=== PATIENT | female | born 1950 | race Caucasian/White ===

== ENCOUNTER 2016-10-21 08:00 | Outpatient (CLI) | payer MEDICARE, MEDICAID | END 2016-10-21 08:01 | disposition home or self-care (01) | DX: I10 Essential (primary) hypertension (principal); D35.2 Benign neoplasm of pituitary gland; E24.9 Cushing's syndrome, unspecified; G62.9 Polyneuropathy, unspecified; E03.9 Hypothyroidism, unspecified; G89.29 Other chronic pain; R25.1 Tremor, unspecified ==

== ENCOUNTER 2016-11-19 10:30 | Outpatient (CLI) | payer MEDICARE, MEDICAID | END 2016-11-19 10:31 | disposition home or self-care (01) | DX: E87.6 Hypokalemia (principal); G60.9 Hereditary and idiopathic neuropathy, unspecified ==

== ENCOUNTER 2016-12-24 12:31 | Outpatient (CLI) | payer MEDICARE, MEDICAID | END 2016-12-24 12:32 | disposition home or self-care (01) | DX: G43.909 Migraine, unspecified, not intractable, without status migrainosus (principal) ==

== ENCOUNTER 2017-01-06 12:36 | Outpatient (CLI) | payer MEDICARE, MEDICAID ==
[2017-01-06 21:26] LABS: HEMOGLOBIN A1C 0.24 g/dL
== END 2017-01-06 12:37 | disposition home or self-care (01) ==
LOC: LAB.F 12:36
PROVIDERS: ATTEND Nurse Practitioner Family
DX: E16.2 Hypoglycemia, unspecified (principal); E03.9 Hypothyroidism, unspecified
CPT/HCPCS: 36415; 83036; 84443

== ENCOUNTER 2017-01-21 21:26 | Outpatient (CLI) | payer MEDICARE, MEDICAID | END 2017-01-21 21:27 | disposition EMS.NT | LOC: EMS 21:26 | PROVIDERS: ATTEND Surgery | DX: R41.0 Disorientation, unspecified (principal) ==

== ENCOUNTER 2017-01-21 23:02 | Emergency (ER) | payer MEDICARE, MEDICAID ==
[2017-01-21] MEDS ORDERED: SODIUM CHLORIDE 0.9% 1,000 ML IV ONE (23:39)
[2017-01-22 00:04] LABS: BASOPHILS % (AUTO) 0.6 %; EOSINOPHILS % (AUTO) 1.2 %; HCT - HEMATOCRIT 37.4 % (37.0-47.0); HGB - HEMOGLOBIN 12.5 g/dL (12.0-16.0); LYMPHOCYTES # (AUTO) 1.7 10^3/uL (1.5-3.5); LYMPHOCYTES % (AUTO) 41.4 %; MEAN CORPUSCULAR HEMOGLOBIN 27.9 pg (27.0-31.0); MEAN CORPUSCULAR HGB CONC 33.4 g/dL (32.0-36.0); MEAN CORPUSCULAR VOLUME 83.6 fL (81.0-99.0); MEAN PLATELET VOLUME 7.6 fL (7.9-10.8); MONOCYTES # (AUTO) 0.3 10^3/uL (0.0-1.0); MONOCYTES % (AUTO) 7.3 %; NEUTROPHILS % (AUTO) 49.5 %; RED BLOOD COUNT 4.47 10^6/uL (4.20-5.40); UNCORRECTED WHITE BLOOD COUNT 4.1 x10^3/uL; WHITE BLOOD COUNT 4.1 x10^3/uL (4.8-10.8)
[2017-01-22 00:16] LABS: BILIRUBIN,TOTAL 0.8 mg/dL (0.2-1.0); CREATININE 0.4 mg/dL (0.4-1.0); MAGNESIUM 1.7 mg/dL (1.7-2.8); PHOSPHORUS 3.3 mg/dL (2.5-4.6); POTASSIUM 3.9 mmol/L (3.5-5.0); TOTAL PROTEIN 6.9 g/dL (6.7-8.2)
--- NOTE | 2017-01-22 00:22 | ED Physician Documentation ---
History of Present Illness - Stated complaint Stated Complaint: NOT EATING/DRINKING - Chief complaint Chief Complaint: Abd Pain - History obtained from History obtained from: Patient, Family - History of Present Illness Timing: Yesterday - Additonal information Additional information: Patient is a 66 year old female with multiple co-morbidities who is coming to the emergency department for not feeling well. According to patient and care- taker patient hasn't felt well and hasn't eaten or drank anything since yesterday so they brought the patient in for evaluation. Review of Systems Constitutional: reports: Chills, Myalgias. denies: Fever Eyes: denies: Loss of vision, Photophobia Ears: denies: Ear pain, Drainage/discharge Nose: denies: Congestion, Epistaxis Throat: denies: Dental pain / toothache, Sore throat Cardiac: denies: Chest pain / pressure, Palpitations Respiratory: denies: Cough, Wheezing GI: reports: Abdominal Pain. denies: Nausea, Vomiting : denies: Dysuria, Frequency, Hesitancy Skin: denies: Rash, Lesions Musculoskeletal: reports: Neck pain, Back pain, Extremity pain, Joint pain Neurologic: reports: Generalized weakness. denies: Focal weakness, Numbness, Difficulty speaking, Headache Psychiatric: denies: Depressed Immunocompromised: denies: Immunocompromised PD PAST MEDICAL HISTORY - Past Medical History Past Medical History: No Cardiovascular: Hypertension GI: GERD Psych: Depression Musculoskeletal: Fibromyalgia Other Past Medical History: foot drop, chronic px - Past Surgical History Past Surgical History: Yes General: Appendectomy, Gastric surgery Ortho: ACL reconstruction - Present Medications Home Medications: Ambulatory Orders Medication Instructions Recorded Confirmed Aspirin [Aspirin EC] 81 mg PO DAILY 01/21/17 01/21/17 Duloxetine HCl 60 mg PO DAILY 01/21/17 01/21/17 Fluoxetine HCl 20 mg PO DAILY 01/21/17 01/21/17 Hydrocodone/Acetaminophen 1 tab PO Q4HR 01/21/17 01/21/17 [Hydrocodon-Acetaminophn 10-325] Hydroxyzine HCl 50 mg PO QID 01/21/17 01/21/17 Levothyroxine [Synthroid] 25 mcg PO DAILY 01/21/17 01/21/17 Lisinopril 10 mg PO BID 01/21/17 01/21/17 Methadone HCl [Dolophine HCl] 5 mg PO BID 01/21/17 01/21/17 Omeprazole [PriLOSEC] 20 mg PO DAILY 01/21/17 01/21/17 Pregabalin [Lyrica] 200 mg PO BID 01/21/17 01/21/17 amLODIPine [Norvasc] 5 mg PO BID 01/21/17 01/21/17 - Allergies Allergies/Adverse Reactions: Allergies Allergy/AdvReac Type Severity Reaction Status Date / Time latex Allergy Rash Verified 01/21/17 23:11 Penicillins Allergy Rash Verified 01/21/17 23:11 - Social History Does the pt smoke?: No Smoking Status: Never smoker Does the pt drink ETOH?: No Does the pt have substance abuse?: No - Immunizations Immunizations are current?: Yes PD ED PE NORMAL - Vitals Vital signs reviewed: Yes (within normal limits) - General General: Alert and oriented X 3, No acute distress - HEENT HEENT: Atraumatic, PERRL, Moist mucous membranes, Pharynx benign - Neck Neck: Supple, no meningeal sign, No JVD - Cardiac Cardiac: RRR, No murmur - Respiratory Respiratory: No respiratory distress - Abdomen Abdomen: Soft, Non distended - Derm Derm: Normal color, Warm and dry, No rash - Extremities Extremities: No deformity - Neuro Neuro: Alert and oriented X 3, No sensory deficit, Normal speech PD ED PE EXPANDED - General General: No acute distress, Other (generalized pain all over body) - Extremities Extremities: Left foot (drop) Results - Vitals Vitals: Vital Signs - 24 hr 01/21/17 01/22/17 23:07 00:32 Temperature 36.2 C L Heart Rate 90 72 Respiratory 18 16 Rate Blood Pressure 128/91 H 133/78 H O2 Saturation 100 99 Oxygen O2 Source Room air - Labs Labs: Laboratory Tests 01/21/17 01/21/17 23:55 23:55 WBC 4.1 L RBC 4.47 Hgb 12.5 Hct 37.4 MCV 83.6 MCH 27.9 MCHC 33.4 RDW 17.0 H Plt Count 217 MPV 7.6 L Neut # 2.0 Lymph # 1.7 [place] # 0.3 Eos # 0.0 Baso # 0.0 Absolute Nucleated RBC 0.00 Nucleated RBCs 0.0 Sodium 140 Potassium 3.9 Chloride 106 Carbon Dioxide 25 Anion Gap 9.0 BUN 9 Creatinine 0.4 Estimated GFR (MDRD) 161 Glucose 82 Calcium 9.0 Phosphorus 3.3 Magnesium 1.7 Total Bilirubin 0.8 AST 25 ALT 20 Alkaline Phosphatase 73 Total Protein 6.9 Albumin 3.4 Globulin 3.5 Albumin/Globulin Ratio 1.0 Lipase 11 L PD MEDICAL DECISION MAKING - ED course Complexity details: reviewed old records, reviewed results, re-evaluated patient , considered differential, d/w patient, d/w family ED course: Patient was seen and examined at bedside. IV access was gained and labs were drawn. Patient was treated with ns bolus. When patient's diagnostics came back they were within normal limits. Patient stated she was feeling better and wanted to go home. patient requried no further inpatient work up and was stable for discharge with outpatient follow up. Departure - Departure Disposition: Home, Self Care Clinical Impression: Loss of appetite Condition: Good Instructions: Chronic Pain Manage Meds Follow-Up: Rosalina Marc ARNP [Primary Care Provider] - Within 1 week Comments: Your diagnostics today were within normal limits. there were no major abnormalities on your labs today. You should try to at least take in sufficient fluids. If this problem persists you should follow up with your pmd for possibly an appetite stimulant and medication adjustment. You may return to the emergency department at any time for new, worsening or uncontrollable symptoms. Discharge Date/Time: 01/22/17 00:22
[2017-01-22 00:33] VITALS: BP 133/78
== END 2017-01-22 00:22 | disposition home or self-care (01) ==
LOC: ED 23:02
DX: R63.0 Anorexia (principal); I10 Essential (primary) hypertension
CPT/HCPCS: 36415; 80053; 83690; 83735; 84100; 85025; 99283; 99284

== ENCOUNTER 2017-02-03 17:17 | Outpatient (CLI) | payer MEDICARE, MEDICAID ==
--- NOTE | 2017-02-04 18:59 | Ultrasound Report ---
COMPLETE ABDOMINAL ULTRASOUND: 02/03/2017 CLINICAL HISTORY: A 66-year-old female with abdominal pain. COMPARISON: 12/30/2006 TECHNIQUE: Real-time scanning was performed with business services representative static images obtained. FINDINGS: Liver is normal in size with a parenchymal pattern suggestive of benign fatty infiltration . Liver length is 13.1 cm. Normal hepatopetal flow is seen in the portal vein. Gallbladder shows no significant wall thickening. There is a calculus noted within the gallbladder. This calculus is mobile. It measures 7 mm in diameter and is associated with shadowing. Common hepatic and common bile duct measures 5.5 mm and is within normal limits. Pancreas is incompletely visualized. No obvious abnormality is seen in the portion of the pancreas v isualized. Right kidney measures 9.6 cm. The inferior pole of the right kidney is not seen optimally. Cannot e xclude at least some mild scarring in the inferior pole. Left kidney measures 8.4 cm and has an irregular contour suggesting scarring along its lateral aspect . Spleen is normal with a length of 9.8 cm. Abdominal aorta appears normal. There is some calcified plaque. AP diameter in the mid abdominal ao rta is 1.8 cm. Diameters of the distal abdominal aorta are 1.5 x 1.4 cm. Inferior vena cava shows n o significant abnormality. IMPRESSION: 1. CHOLELITHIASIS. A 7-MM CALCULUS IS NOTED IN THE GALLBLADDER. 2. BENIGN FATTY INFILTRATION OF THE LIVER IS NOTED. 3. [id number] SCARRING IS NOTED INVOLVING THE LEFT KIDNEY WITH MILD REDUCTION IN SIZE. RENAL LENGTH IS 8.4 CM. 4. CANNOT EXCLUDE SCARRING INVOLVING THE INFERIOR POLE OF THE RIGHT KIDNEY. RIGHT KIDNEY'S LENGTH I S 9.6 CM. JOB #: [id number] EXT JOB #:[id number]
== END 2017-02-03 17:18 | disposition home or self-care (01) ==
LOC: DI 17:17
PROVIDERS: ATTEND Family Medicine
DX: K80.20 Calculus of gallbladder without cholecystitis without obstruction (principal); K76.0 Fatty (change of) liver, not elsewhere classified
CPT/HCPCS: 76700

== ENCOUNTER 2017-02-10 10:44 | Outpatient (CLI) | payer MEDICARE, MEDICAID | END 2017-02-10 10:45 | disposition home or self-care (01) | LOC: LAB.F 10:44 | PROVIDERS: ATTEND Family Medicine | DX: E03.9 Hypothyroidism, unspecified (principal) | CPT/HCPCS: 36415; 84443 ==

== ENCOUNTER 2017-03-12 11:45 | Outpatient (CLI) | payer MEDICARE, MEDICAID ==
[2017-03-12 18:36] LABS: BASOPHILS % (AUTO) 0.4 %; EOSINOPHILS # (AUTO) 0.1 10^3/uL (0.0-0.7); EOSINOPHILS % (AUTO) 2.5 %; HGB - HEMOGLOBIN 12.4 g/dL (12.0-16.0); LYMPHOCYTES # (AUTO) 2.1 10^3/uL (1.5-3.5); LYMPHOCYTES % (AUTO) 41.8 %; MEAN CORPUSCULAR HEMOGLOBIN 29.5 pg (27.0-31.0); MEAN CORPUSCULAR HGB CONC 32.5 g/dL (32.0-36.0); MEAN CORPUSCULAR VOLUME 90.9 fL (81.0-99.0); MEAN PLATELET VOLUME 8.4 fL (7.9-10.8); MONOCYTES # (AUTO) 0.2 10^3/uL (0.0-1.0); MONOCYTES % (AUTO) 4.4 %; NEUTROPHILS # (AUTO) 2.5 10^3/uL (1.5-6.6); NEUTROPHILS % (AUTO) 50.9 %; NUCLEATED RED BLOOD CELLS AUTO 0.1 /100WBC; RED BLOOD COUNT 4.18 10^6/uL (4.20-5.40); RED CELL DISTRIBUTION WIDTH 17.3 % (12.0-15.0)
[2017-03-12 19:00] LABS: ALBUMIN/GLOBULIN RATIO 1.1 (1.0-2.2); BILIRUBIN,TOTAL 0.4 mg/dL (0.2-1.0); CALCIUM 8.1 mg/dL (8.5-10.3); CREATININE 0.5 mg/dL (0.4-1.0); MAGNESIUM 1.7 mg/dL (1.7-2.8); POTASSIUM 4.5 mmol/L (3.5-5.0); TOTAL PROTEIN 5.9 g/dL (6.7-8.2)
== END 2017-03-12 11:46 | disposition home or self-care (01) ==
LOC: LAB.F 11:45
PROVIDERS: ATTEND Nurse Practitioner Family
DX: R63.4 Abnormal weight loss (principal)
CPT/HCPCS: 36415; 80053; 83735; 85025

== ENCOUNTER 2017-03-19 20:53 | Emergency (ER) | payer MEDICARE, MEDICAID ==
[2017-03-19] MEDS ORDERED: SODIUM CHLORIDE 0.9% 1,000 ML IV ONE (21:56)
[2017-03-19 22:42] LABS: BASOPHILS % (AUTO) 0.2 %; EOSINOPHILS % (AUTO) 0.5 %; HCT - HEMATOCRIT 37.6 % (37.0-47.0); HGB - HEMOGLOBIN 12.4 g/dL (12.0-16.0); LYMPHOCYTES # (AUTO) 1.3 10^3/uL (1.5-3.5); LYMPHOCYTES % (AUTO) 15.4 %; MEAN CORPUSCULAR HEMOGLOBIN 29.7 pg (27.0-31.0); MEAN CORPUSCULAR VOLUME 89.9 fL (81.0-99.0); MEAN PLATELET VOLUME 7.9 fL (7.9-10.8); MONOCYTES # (AUTO) 0.6 10^3/uL (0.0-1.0); NEUTROPHILS # (AUTO) 6.5 10^3/uL (1.5-6.6); NEUTROPHILS % (AUTO) 76.9 %; NUCLEATED RED BLOOD CELLS AUTO 0.1 /100WBC; RED BLOOD COUNT 4.18 10^6/uL (4.20-5.40); RED CELL DISTRIBUTION WIDTH 17.1 % (12.0-15.0); UNCORRECTED WHITE BLOOD COUNT 8.5 x10^3/uL; WHITE BLOOD COUNT 8.5 x10^3/uL (4.8-10.8)
[2017-03-19 22:55] LABS: ALBUMIN/GLOBULIN RATIO 1.1 (1.0-2.2); BILIRUBIN,TOTAL 0.4 mg/dL (0.2-1.0); CREATININE 0.7 mg/dL (0.4-1.0); MAGNESIUM 1.3 mg/dL (1.7-2.8); PHOSPHORUS 2.4 mg/dL (2.5-4.6); TOTAL PROTEIN 5.6 g/dL (6.7-8.2)
[2017-03-19] MEDS ORDERED: POTASSIUM CHLORIDE 20 MEQ TABLET PO STA (23:44)
[2017-03-19] MEDS ORDERED: MAGNESIUM OXIDE 400 MG TABLET PO SCH (23:45)
[2017-03-19] MEDS ORDERED: POTASSIUM CHLORIDE 20 MEQ TABLET PO ONE (23:55)
[2017-03-19] MEDS ORDERED: MAGNESIUM OXIDE 400 MG TABLET PO ONE (23:55)
--- NOTE | 2017-03-20 00:24 | ED Physician Documentation ---
PD HPI NVD - Stated complaint Stated Complaint: NOT EATING - Chief complaint Chief Complaint: Abd Pain - History obtained from History obtained from: Patient, Family - History of Present Illness Timing - onset: How many days ago (2) Timing - details: Gradual onset, Still present Associated symptoms: Abdominal pain. No: Fever, Chest pain, Melena, Dizzy Contributing factors: No: Sick contact, Bad food, Travel, Recent antibiotics, Alcohol use Similar symptoms before: Treatment, Follow up Recently seen: Not recently seen - Additonal information Additional information: Patient is a 66 year old female with multiple co-morbidities who is presenting to the emergency department for diarrhea and abdominal cramping. according to patient and family, the patient has had multiple episodes of diarrhea over the last few days. patient denies any fevers, chills or vomiting. Review of Systems Constitutional: denies: Fever, Chills Ears: denies: Ear pain, Drainage/discharge Nose: denies: Congestion, Epistaxis Throat: denies: Sore throat Cardiac: denies: Chest pain / pressure, Palpitations Respiratory: denies: Cough, Wheezing GI: reports: Abdominal Pain, Diarrhea. denies: Abdominal Swelling, Nausea, Vomiting, Constipation : denies: Dysuria, Frequency, Hesitancy Skin: denies: Rash, Lesions Musculoskeletal: denies: Back pain, Extremity pain Neurologic: denies: Generalized weakness, Focal weakness, Numbness Immunocompromised: reports: Immunocompromised PD PAST MEDICAL HISTORY - Past Medical History Cardiovascular: Hypertension GI: GERD Psych: Depression Musculoskeletal: Fibromyalgia - Past Surgical History Past Surgical History: Yes General: Appendectomy, Gastric surgery Ortho: ACL reconstruction - Present Medications Home Medications: Ambulatory Orders Medication Instructions Recorded Confirmed Aspirin [Aspirin EC] 81 mg PO DAILY 01/21/17 01/21/17 Duloxetine HCl 60 mg PO DAILY 01/21/17 01/21/17 Fluoxetine HCl 20 mg PO DAILY 01/21/17 01/21/17 Hydrocodone/Acetaminophen 1 tab PO Q4HR 01/21/17 01/21/17 [Hydrocodon-Acetaminophn 10-325] Hydroxyzine HCl 50 mg PO QID 01/21/17 01/21/17 Levothyroxine [Synthroid] 25 mcg PO DAILY 01/21/17 01/21/17 Lisinopril 10 mg PO BID 01/21/17 01/21/17 Methadone HCl [Dolophine HCl] 5 mg PO BID 01/21/17 01/21/17 Omeprazole [PriLOSEC] 20 mg PO DAILY 01/21/17 01/21/17 Pregabalin [Lyrica] 200 mg PO BID 01/21/17 01/21/17 amLODIPine [Norvasc] 5 mg PO BID 01/21/17 01/21/17 Dicyclomine [Bentyl] 10 mg PO TID #15 capsule 03/20/17 - Allergies Allergies/Adverse Reactions: Allergies Allergy/AdvReac Type Severity Reaction Status Date / Time latex Allergy Rash Verified 03/19/17 21:01 Penicillins Allergy Rash Verified 03/19/17 21:01 - Social History Does the pt smoke?: No Smoking Status: Never smoker Does the pt drink ETOH?: No Does the pt have substance abuse?: No - Immunizations Immunizations are current?: Yes - POLST Patient has POLST: No PD ED PE NORMAL - Vitals Vital signs reviewed: Yes - General General: Alert and oriented X 3 - HEENT HEENT: Atraumatic, PERRL - Neck Neck: Supple, no meningeal sign - Cardiac Cardiac: RRR, No murmur - Respiratory Respiratory: No respiratory distress - Abdomen Abdomen: Soft - Derm Derm: Normal color, Warm and dry - Extremities Extremities: No edema, No calf tenderness / cord - Neuro Neuro: marketing and public relations manager 2-12 intact, Normal speech - Psych Psych: Normal mood PD ED PE EXPANDED - General General: Alert - HEENT HEENT: Dry mucous membranes - Abdomen Abdomen: Tender to palpation, Generalized/diffuse. No: Rebound, Guarding Results - Vitals Vitals: Vital Signs - 24 hr 03/19/17 03/19/17 03/20/17 20:58 23:29 00:33 Temperature 36.3 C L 36.0 C L 36.0 C L Heart Rate 78 89 72 Respiratory 16 16 15 Rate Blood Pressure 111/79 93/49 L 109/75 O2 Saturation 100 98 97 Oxygen O2 Source Room air - Labs Labs: Microbiology 03/19/17 22:45 Campylobacter Antigen Assay - Final Stool 03/19/17 22:45 Clostridium difficile (PCR) - Final Stool Laboratory Tests 03/19/17 03/19/17 22:30 22:30 WBC 8.5 RBC 4.18 L Hgb 12.4 Hct 37.6 MCV 89.9 MCH 29.7 MCHC 33.0 RDW 17.1 H Plt Count 180 MPV 7.9 Neut # 6.5 Lymph # 1.3 L [place] # 0.6 Eos # 0.0 Baso # 0.0 Absolute Nucleated RBC 0.01 Nucleated RBCs 0.1 Sodium 140 Potassium 3.0 L Chloride 112 H Carbon Dioxide 19 L Anion Gap 9.0 BUN 16 Creatinine 0.7 Estimated GFR (MDRD) 84 L Glucose 83 Calcium 8.0 L Phosphorus 2.4 L Magnesium 1.3 L Total Bilirubin 0.4 AST 24 ALT 31 Alkaline Phosphatase 73 Total Protein 5.6 L Albumin 2.9 L Globulin 2.7 Albumin/Globulin Ratio 1.1 Lipase 10 L PD MEDICAL DECISION MAKING - ED course Complexity details: reviewed old records, reviewed results, re-evaluated patient , considered differential, d/w patient, d/w family ED course: Patient was seen and examined at bedside. iv access was gained and labs were drawn. Patient was started on a fluid bolus. stool was collected. When patient's labs came back she was found to have low potassium and magnesium which were replaced. Patient's stool was negative for c-diff. Patient did not have diarrhea while in the emergency department. patient required no further work up and was stable for discharge with outpatient follow up. Departure - Departure Disposition: 01 Home, Self Care Clinical Impression: Diarrhea Condition: Good Instructions: Diarrhea Follow-Up: Rosalina Marc ARNP [Primary Care Provider] - Within 1 week Prescriptions: Dicyclomine [Bentyl] 10 mg PO TID #15 capsule Comments: Your diagnostics today showed mild dehydration and a decrease in your electrolytes which is consistent with a diarrheal illness. It is important that you stay well hydrated with gatorade and electrolyte solution. You should follow up with your pmd if your symptoms persist. You may return to the emergency department at any time for new, worsening or uncontrollable symptoms. Discharge Date/Time: 03/20/17 00:40
[2017-03-20 00:34] VITALS: BP 109/75
== END 2017-03-20 00:40 | disposition home or self-care (01) ==
LOC: ED 20:53
DX: R19.7 Diarrhea, unspecified (principal); E86.0 Dehydration; I10 Essential (primary) hypertension; M79.7 Fibromyalgia; Z79.82 Long term (current) use of aspirin
CPT/HCPCS: 36415; 80053; 83690; 83735; 84100; 85025; 87045; 87046; 87077; 87493; 99283; A9270

== ENCOUNTER 2017-12-02 11:25 | Outpatient (CLI) | payer MEDICARE, MEDICAID | END 2017-12-02 11:26 | disposition home or self-care (01) | LOC: RT.S 11:25 | PROVIDERS: ATTEND Nurse Practitioner Family | DX: G62.9 Polyneuropathy, unspecified (principal) | CPT/HCPCS: 93005 ==

== ENCOUNTER 2017-12-17 11:32 | Outpatient (CLI) | payer MEDICARE, MEDICAID ==
--- NOTE | 2017-12-17 14:03 | Ultrasound Report ---
COMPLETE ABDOMINAL ULTRASOUND: 12/17/2017 CLINICAL INDICATION: Pain. COMPARISON: 02/03/2017. TECHNIQUE: Real-time scanning was performed with cash applications representative static images obtained. FINDINGS: The liver measures 12.2 cm. Hepatic echogenicity is normal. No intrahepatic biliary dilatation or focal parenchymal lesion is present. The common bile duct measures 2 mm. The gallbladder again demonstrates cholelithiasis. No wall thickening or pericholecystic fluid is present. The pancreas is obscured by bowel gas. The right kidney measures 9.0 cm. Calculus in the lower pole of the right kidney is stable, without hydronephrosis. Small cysts are again noted. The left kidney measures 10.9 cm, and demonstrates no hydronephrosis. The spleen measures 11.2 cm, and demonstrates normal echotexture. The abdominal aorta is normal in caliber. The inferior vena cava is unremarkable. Bilateral pleural effusions are incidentally noted. IMPRESSION: CHOLELITHIASIS, WITHOUT EVIDENCE OF ACUTE CHOLECYSTITIS OR BILIARY OBSTRUCTION. RIGHT NEPHROLITHIASIS, WITHOUT HYDRONEPHROSIS. BILATERAL PLEURAL EFFUSIONS. TD: 12/17/2017 14:03
== END 2017-12-17 11:33 | disposition home or self-care (01) ==
LOC: DI 11:32
PROVIDERS: ATTEND Nurse Practitioner Family
DX: K80.20 Calculus of gallbladder without cholecystitis without obstruction (principal); N20.0 Calculus of kidney; J90 Pleural effusion, not elsewhere classified; K91.2 Postsurgical malabsorption, not elsewhere classified; R63.4 Abnormal weight loss
CPT/HCPCS: 36415; 76700; 80053; 82043; 82150; 82306; 83690; 84439; 84443; 85025

== ENCOUNTER 2017-12-17 13:35 | Outpatient (CLI) | payer MEDICARE, MEDICAID ==
[2017-12-17 14:13] LABS: BASOPHILS % (AUTO) 0.5 %; EOSINOPHILS # (AUTO) 0.1 10^3/uL (0.0-0.7); EOSINOPHILS % (AUTO) 2.7 %; HGB - HEMOGLOBIN 11.1 g/dL (12.0-16.0); LYMPHOCYTES # (AUTO) 1.8 10^3/uL (1.5-3.5); LYMPHOCYTES % (AUTO) 41.2 %; MEAN CORPUSCULAR HEMOGLOBIN 28.3 pg (27.0-31.0); MEAN CORPUSCULAR HGB CONC 33.5 g/dL (32.0-36.0); MEAN CORPUSCULAR VOLUME 84.7 fL (81.0-99.0); MONOCYTES # (AUTO) 0.2 10^3/uL (0.0-1.0); MONOCYTES % (AUTO) 5.4 %; NEUTROPHILS # (AUTO) 2.2 10^3/uL (1.5-6.6); NEUTROPHILS % (AUTO) 50.2 %; PLT - PLATELET COUNT 178 10^3/uL (130-450); RED BLOOD COUNT 3.92 10^6/uL (4.20-5.40); RED CELL DISTRIBUTION WIDTH 14.9 % (12.0-15.0); WHITE BLOOD COUNT 4.3 x10^3/uL (4.8-10.8)
[2017-12-17 14:17] LABS: ALBUMIN 3.1 g/dL (3.2-5.5); ALBUMIN/GLOBULIN RATIO 1.2 (1.0-2.2); ALKALINE PHOSPHATASE 59 IU/L (42-121); ALT ALANINE AMINOTRANSFERASE 14 IU/L (10-60); AMYLASE 11 U/L (28-100); AST ASPARTATE AMINOTRANSFERASE 27 IU/L (10-42); BILIRUBIN,TOTAL 0.4 mg/dL (0.2-1.0); BUN - BLOOD UREA NITROGEN 13 mg/dL (6-20); CALCIUM 7.7 mg/dL (8.5-10.3); CARBON DIOXIDE - CO2 24 mmol/L (21-32); CHLORIDE 107 mmol/L (101-111); CREATININE 0.4 mg/dL (0.4-1.0); GFR - MDRD 160 (>89); GLUCOSE 66 mg/dL (70-100); LIPASE 15 U/L (22-51); SODIUM 137 mmol/L (135-145); TOTAL PROTEIN 5.7 g/dL (6.7-8.2)
[2017-12-17 14:32] LABS: THYROID STIMULATING HORMONE 8.37 uIU/mL (0.34-5.60)
[2017-12-17 15:08] LABS: FREE T4 (FREE THYROXINE) 0.45 ng/dL (0.58-1.64)
== END 2017-12-17 13:36 | disposition home or self-care (01) ==
LOC: LAB 13:35
PROVIDERS: ATTEND Nurse Practitioner Family
DX: K91.2 Postsurgical malabsorption, not elsewhere classified (principal); R63.4 Abnormal weight loss
CPT/HCPCS: 36415; 80053; 82043; 82150; 82306; 83690; 84439; 84443; 85025

== ENCOUNTER 2018-02-05 01:58 | Outpatient (CLI) | payer MEDICARE, MEDICAID | END 2018-02-05 01:59 | disposition critical access hospital (66) | LOC: EMS 01:58 | PROVIDERS: ATTEND Surgery | DX: R10.32 Left lower quadrant pain (principal) | CPT/HCPCS: A0425; A0427 ==

== ENCOUNTER 2018-02-05 02:34 | Emergency (ER) | payer MEDICARE, MEDICAID ==
--- NOTE | 2018-02-05 02:46 | ED Physician Documentation ---
PD HPI ABD PAIN - Stated complaint Stated Complaint: LLQ PAIN - Chief complaint Chief Complaint: Abd Pain - History obtained from History obtained from: Patient, Family (sister (who is also primary caregiver of patient)) - History of Present Illness Timing - onset: Other (patient says months; sister indicates these symptoms have been for at least ten years) Timing - details: Constant, Waxing and waning Pain level max: 10 Pain level now: 10 Quality: Pain Location: LLQ Radiation: Other (left hip) Improved by: Other (no ameliorating factors) Worsened by: Other (no exacerbating factors) Associated symptoms: No: Fever, Vomiting Recently seen: Not recently seen - Additional information Additional information: BIBA c/o uncontrolled left abdominal and left hip pain, given 250 micrograms fentanyl en route without adequate relief. Patient takes methadone, vicodin, and uses marijuana for her chronic pain. patient is bed-ridden; no recent falls or injury Review of Systems Constitutional: denies: Fever Cardiac: reports: Reviewed and negative Respiratory: reports: Reviewed and negative GI: reports: Abdominal Pain. denies: Vomiting, Constipation, Diarrhea : denies: Dysuria, Frequency Skin: denies: Rash Musculoskeletal: reports: Joint pain (left hip) Neurologic: denies: Focal weakness, Numbness PD PAST MEDICAL HISTORY - Past Medical History Cardiovascular: Hypertension GI: GERD Psych: Depression Musculoskeletal: Fibromyalgia - Past Surgical History Past Surgical History: Yes General: Appendectomy, Gastric surgery Ortho: ACL reconstruction - Present Medications Home Medications: Ambulatory Orders Medication Instructions Recorded Confirmed Aspirin [Aspirin EC] 81 mg PO DAILY 01/21/17 01/21/17 Duloxetine HCl 60 mg PO DAILY 01/21/17 01/21/17 Fluoxetine HCl 20 mg PO DAILY 01/21/17 01/21/17 Hydrocodone/Acetaminophen 1 tab PO Q4HR 01/21/17 01/21/17 [Hydrocodon-Acetaminophn 10-325] Levothyroxine [Synthroid] 25 mcg PO DAILY 01/21/17 01/21/17 Lisinopril 10 mg PO BID 01/21/17 01/21/17 Methadone HCl [Dolophine HCl] 5 mg PO BID 01/21/17 01/21/17 Omeprazole [PriLOSEC] 20 mg PO DAILY 01/21/17 01/21/17 Pregabalin [Lyrica] 200 mg PO BID 01/21/17 01/21/17 amLODIPine [Norvasc] 5 mg PO BID 01/21/17 01/21/17 hydrOXYzine HCl [Hydroxyzine HCl] 50 mg PO QID 01/21/17 01/21/17 Dicyclomine [Bentyl] 10 mg PO TID #15 capsule 03/20/17 LORazepam [Lorazepam] 0.5 - 1 mg PO Q8HR PRN #20 tablet 02/05/18 Methadone [Methadone] 5 mg PO BID 02/05/18 - Allergies Allergies/Adverse Reactions: Allergies Allergy/AdvReac Type Severity Reaction Status Date / Time latex Allergy Rash Verified 02/05/18 02:43 Penicillins Allergy Rash Verified 02/05/18 02:43 - Social History Does the pt smoke?: No Smoking Status: Never smoker Does the pt drink ETOH?: No Does the pt have substance abuse?: No - Immunizations Immunizations are current?: Yes - POLST Patient has POLST: No PD ED PE NORMAL - Vitals Vital signs reviewed: Yes - General General: Alert and oriented X 3, Well developed/nourished, Other (crying, appears to be in painful distress that waxes and wanes during H+P) - HEENT HEENT: Moist mucous membranes - Cardiac Cardiac: RRR, No murmur - Respiratory Respiratory: No respiratory distress, Other (decreased breath sounds bilateral bases) - Abdomen Abdomen: Soft, Non distended, Other (tender to palpation bilateral lower quadrants with distractable component (reports more pain, and appears to be in more painful discomfort, when palpation is not accompanied by distraction such as conversation unrelated to her symptoms). no rebound or guarding.) - Back Back: No CVA TTP, No spinal TTP - Derm Derm: Normal color, Warm and dry, No rash - Extremities Extremities: No deformity, No tenderness to palpate, No edema, Other (left hip: nontender, no erythema, not hot to touch, no obvious swelling or deformity. limited ROM , although it is unclear if this is due to pain) Results - Vitals Vitals: Vital Signs - 24 hr 02/05/18 02/05/18 02/05/18 02:34 03:00 03:05 Temperature 36.3 C L Heart Rate 80 70 Respiratory 20 16 Rate Blood Pressure 101/64 84/66 L 86/60 L O2 Saturation 97 99 02/05/18 02/05/18 02/05/18 03:13 03:21 03:36 Temperature Heart Rate 66 78 Respiratory 22 Rate Blood Pressure 84/58 L 96/61 97/65 O2 Saturation 98 98 02/05/18 02/05/18 02/05/18 03:50 04:34 05:08 Temperature Heart Rate 61 64 58 L Respiratory 18 14 16 Rate Blood Pressure 110/65 105/52 L 102/92 H O2 Saturation 99 98 97 02/05/18 02/05/18 02/05/18 05:40 06:09 06:52 Temperature 36.7 C Heart Rate 57 L 58 L 66 Respiratory 16 18 18 Rate Blood Pressure 93/51 L 108/61 106/62 O2 Saturation 98 99 98 Oxygen O2 Source Room air - Labs Labs: Laboratory Tests 02/05/18 02/05/18 03:00 03:00 WBC 4.4 L RBC 3.83 L Hgb 11.0 L Hct 32.9 L MCV 86.0 MCH 28.6 MCHC 33.3 RDW 14.5 Plt Count 202 MPV 7.9 Neut # (Auto) 2.6 Lymph # (Auto) 1.3 L [place] # (Auto) 0.3 Eos # (Auto) 0.1 Baso # (Auto) 0.0 Absolute Nucleated RBC 0.00 Nucleated RBC % 0.0 Sodium 136 Potassium 3.8 Chloride 105 Carbon Dioxide 25 Anion Gap 6.0 BUN 13 Creatinine 0.5 Estimated GFR (MDRD) 124 Glucose 82 Calcium 7.8 L Total Bilirubin 0.2 AST 28 ALT 15 Alkaline Phosphatase 67 Total Protein 6.1 L Albumin 3.3 Globulin 2.8 Albumin/Globulin Ratio 1.2 Lipase 16 L - Rads (name of study) CT A/P Radiology: Prelim report reviewed, See rad report PD MEDICAL DECISION MAKING - ED course Complexity details: reviewed old records, reviewed results, re-evaluated patient , considered differential, d/w patient, d/w family ED course: no acute findings on testing, including CT A/P with IV/PO contrast, and no findings that would explain her pain. Symptoms were difficult to control, and she had some mild hypotension early in stay that responded to IV fluids, but this limited options for more frequent/higher dosing of narcotic pain medication. Once her blood pressure responded to the IV fluids, given 0.5 mg Dilaudid and 1mg ativan, and, on reevaluation, she was sleeping. she expressed ongoing pain, but appeared more comfortable, as well as drowsy, on the reexam. I discussed results with patient and sister (in ED at bedside). Discharged with rx for ativan to be used only if her usual pain medications are inadequate, and encouraged to follow-up with PMD but return to ED if worse - Sepsis Event Vital Signs: Vital Signs - 24 hr 02/05/18 02/05/18 02/05/18 02:34 03:00 03:05 Temperature 36.3 C L Heart Rate 80 70 Respiratory 20 16 Rate Blood Pressure 101/64 84/66 L 86/60 L O2 Saturation 97 99 02/05/18 02/05/18 02/05/18 03:13 03:21 03:36 Temperature Heart Rate 66 78 Respiratory 22 Rate Blood Pressure 84/58 L 96/61 97/65 O2 Saturation 98 98 02/05/18 02/05/18 02/05/18 03:50 04:34 05:08 Temperature Heart Rate 61 64 58 L Respiratory 18 14 16 Rate Blood Pressure 110/65 105/52 L 102/92 H O2 Saturation 99 98 97 02/05/18 02/05/18 02/05/18 05:40 06:09 06:52 Temperature 36.7 C Heart Rate 57 L 58 L 66 Respiratory 16 18 18 Rate Blood Pressure 93/51 L 108/61 106/62 O2 Saturation 98 99 98 Oxygen O2 Source Room air Departure - Departure Disposition: 01 Home, Self Care Clinical Impression: Chronic pain Condition: Good Instructions: ED Abdominal Pain Unkn Cause, ED Chronic Pain Management Follow-Up: Rosalina Marc ARNP [Primary Care Provider] - Prescriptions: LORazepam [Lorazepam] 0.5 - 1 mg PO Q8HR PRN #20 tablet PRN Reason: Pain Discharge Date/Time: 02/05/18 08:03
[2018-02-05 03:13] LABS: BASOPHILS % (AUTO) 0.6 %; EOSINOPHILS # (AUTO) 0.1 10^3/uL (0.0-0.7); EOSINOPHILS % (AUTO) 2.8 %; LYMPHOCYTES # (AUTO) 1.3 10^3/uL (1.5-3.5); LYMPHOCYTES % (AUTO) 29.9 %; MEAN CORPUSCULAR HEMOGLOBIN 28.6 pg (27.0-31.0); MEAN CORPUSCULAR HGB CONC 33.3 g/dL (32.0-36.0); MEAN PLATELET VOLUME 7.9 fL (7.9-10.8); MONOCYTES # (AUTO) 0.3 10^3/uL (0.0-1.0); MONOCYTES % (AUTO) 6.2 %; NEUTROPHILS # (AUTO) 2.6 10^3/uL (1.5-6.6); NEUTROPHILS % (AUTO) 60.5 %; PLT - PLATELET COUNT 202 10^3/uL (130-450); RED BLOOD COUNT 3.83 10^6/uL (4.20-5.40); RED CELL DISTRIBUTION WIDTH 14.5 % (12.0-15.0); WHITE BLOOD COUNT 4.4 x10^3/uL (4.8-10.8)
[2018-02-05] MEDS ORDERED: IOPAMIDOL-300 100 ML VIAL ONE (03:14)
[2018-02-05] MEDS ORDERED: IOPAMIDOL-300 50 ML VIAL ONE (03:15)
[2018-02-05] MEDS ORDERED: SODIUM CHLORIDE 0.9% 1,000 ML IV STA (03:18)
[2018-02-05 03:21] LABS: ALBUMIN 3.3 g/dL (3.2-5.5); ALBUMIN/GLOBULIN RATIO 1.2 (1.0-2.2); BILIRUBIN,TOTAL 0.2 mg/dL (0.2-1.0); CALCIUM 7.8 mg/dL (8.5-10.3); CREATININE 0.5 mg/dL (0.4-1.0); TOTAL PROTEIN 6.1 g/dL (6.7-8.2)
[2018-02-05] MEDS ORDERED: HYDROmorphone 2 MG/ML VIAL IVP STA (04:02)
[2018-02-05] MEDS ORDERED: LORazepam 2 MG/ML VIAL IVP STA (04:02)
[2018-02-05] MEDS ORDERED: IOPAMIDOL-300 50 ML VIAL PO ONE (04:33)
[2018-02-05] MEDS ORDERED: IOPAMIDOL-300 100 ML VIAL IVP ONE (04:33)
--- NOTE | 2018-02-05 05:04 | CT Report ---
Procedure Date: 02/05/2018 Accession Number: [id number] / [id number] Procedure: CT - Abdomen/Pelvis W/ CPT Code: FULL RESULT: EXAM: CT ABDOMEN AND PELVIS EXAM DATE: 02/05/2018 04:30 AM. CLINICAL HISTORY: Abd. pain. COMPARISONS: 09/04/2011. TECHNIQUE: Routine helical CT imaging was performed through the abdomen and pelvis. IV contrast: ISOVUE 300 100mL. Enteric contrast: Yes. Reconstructions: Coronal and sagittal. In accordance with CT protocol optimization, one or more of the following dose reduction techniques were utilized for this exam: automated exposure control, adjustment of mA and/or KV based on patient size, or use of iterative reconstructive technique. FINDINGS: Lung Bases: Moderate bilateral effusions with compressive atelectasis. Liver: Normal. No masses. Gallbladder/Bile Ducts: Unremarkable. Spleen: Normal. Pancreas: Atrophic. No focal lesion. Adrenal Glands: Normal. Kidneys: There has been interval development of significant left renal atrophy. Right nephrolithiasis is stable. Peritoneal Cavity/Bowel: Normal. No free fluid, free air or adenopathy. No masses or acute inflammatory process. Pelvic Organs: Sigmoid diverticulosis, without CT evidence of diverticulitis. No free fluid or pelvic adenopathy. Vasculature: No aneurysms or other significant abnormality. Bones: No significant abnormality. Other: None. IMPRESSION: Left renal atrophy and pancreatic atrophy. Stable right nephrolithiasis. Moderate pleural effusions with compressive atelectasis. No evident etiology for patient's pain. RADIA
[2018-02-05 06:53] VITALS: BP 106/62
[2018-02-05] MEDS ORDERED: HYDROcod/ACETAM 5/325 MG TABLET PO STA (06:59)
== END 2018-02-05 08:03 | disposition home or self-care (01) ==
LOC: EDUNIT# → ED 02:34
DX: G89.29 Other chronic pain (principal); I10 Essential (primary) hypertension; Z79.82 Long term (current) use of aspirin
CPT/HCPCS: 36415; 74177; 80053; 83690; 85025; 96361; 96374; 99284; A9270; J1170; J2060; Q9967

== ENCOUNTER 2018-02-05 07:56 | Outpatient (CLI) | payer MEDICARE, MEDICAID | END 2018-02-05 07:57 | disposition home or self-care (01) | LOC: EMS 07:56 | PROVIDERS: ATTEND Surgery | DX: G89.29 Other chronic pain (principal); Z74.01 Bed confinement status | CPT/HCPCS: A0425; A0428 ==

== ENCOUNTER 2018-06-12 12:21 | Emergency (ER) | payer MEDICARE, MEDICAID ==
--- NOTE | 2018-06-12 13:33 | ED Physician Documentation ---
PD HPI UPPER EXT INJURY - Stated complaint Stated Complaint: R FINGER PX - Chief complaint Chief Complaint: Ext Problem - History obtained from History obtained from: Patient, Family - History of Present Illness Location: Right, Finger (5th) Type of injury: Blunt / blow (against the bed rail at home) Where injury occurred: Home Timing - onset: How many days ago (3) Timing - duration: Days (3) Timing - details: Gradual onset Pain level max: 5 Pain level now: 4 Improved by: Rest, Ice Worsened by: Moving, Palpating Associated symptoms: Discolored (ecchymosis). No: Weakness, Numbness, Tingling, Swelling Contributing factors: No: Anticoagulated, Prior ortho surgery Recently seen: Not recently seen Review of Systems Constitutional: denies: Fever Neurologic: denies: Focal weakness, Numbness PD PAST MEDICAL HISTORY - Past Medical History Cardiovascular: Hypertension Neuro: Peripheral neuropathy GI: GERD Psych: Depression Musculoskeletal: Fibromyalgia - Past Surgical History Past Surgical History: Yes General: Appendectomy, Gastric surgery Ortho: ACL reconstruction - Present Medications Home Medications: Ambulatory Orders Medication Instructions Recorded Confirmed Aspirin [Aspirin EC] 81 mg PO DAILY 01/21/17 01/21/17 Duloxetine HCl 60 mg PO DAILY 01/21/17 01/21/17 Fluoxetine HCl 20 mg PO DAILY 01/21/17 01/21/17 Hydrocodone/Acetaminophen 1 tab PO Q4HR 01/21/17 01/21/17 [Hydrocodon-Acetaminophn 10-325] Levothyroxine [Synthroid] 25 mcg PO DAILY 01/21/17 01/21/17 Lisinopril 10 mg PO BID 01/21/17 01/21/17 Methadone HCl [Dolophine HCl] 5 mg PO BID 01/21/17 01/21/17 Omeprazole [PriLOSEC] 20 mg PO DAILY 01/21/17 01/21/17 Pregabalin [Lyrica] 200 mg PO BID 01/21/17 01/21/17 amLODIPine [Norvasc] 5 mg PO BID 01/21/17 01/21/17 hydrOXYzine HCl [Hydroxyzine HCl] 50 mg PO QID 01/21/17 01/21/17 Dicyclomine [Bentyl] 10 mg PO TID #15 capsule 03/20/17 LORazepam [Lorazepam] 0.5 - 1 mg PO Q8HR PRN #20 tablet 02/05/18 Methadone 5 mg PO BID 02/05/18 - Allergies Allergies/Adverse Reactions: Allergies Allergy/AdvReac Type Severity Reaction Status Date / Time latex Allergy Rash Verified 06/12/18 12:42 Penicillins Allergy Rash Verified 06/12/18 12:42 - Social History Does the pt smoke?: No Smoking Status: Never smoker Does the pt drink ETOH?: No Does the pt have substance abuse?: No - Immunizations Immunizations are current?: Yes - POLST Patient has POLST: No PD ED PE NORMAL - Vitals Vital signs reviewed: Yes - General General: Alert and oriented X 3 - HEENT HEENT: Moist mucous membranes - Neck Neck: Supple, no meningeal sign - Derm Derm: Warm and dry - Extremities Extremities: Other (R 5th digit swelling, ecchymosis to the MCP joint. NVI. ) - Neuro Neuro: Alert and oriented X 3 Results - Vitals Vitals: Vital Signs - 24 hr 06/12/18 06/12/18 12:28 14:28 Temperature 36.6 C 36.4 C L Heart Rate 66 66 Respiratory 18 17 Rate Blood Pressure 89/57 L 95/60 O2 Saturation 99 97 Oxygen O2 Source Room air - Rads (name of study) R 5th digit Radiology: Prelim report reviewed, EMP read contemporaneously, See rad report (No acute bony abnormality) PD MEDICAL DECISION MAKING - ED course Complexity details: reviewed results, re-evaluated patient, considered differential, d/w patient, d/w family ED course: Patient with a right fifth digit contusion. Her hand is held chronically in the position it is in. There is no evidence of acute ligamentous injury. Placed in a splint for comfort. Will continue supportive care and follow-up with her doctor. No acute findings on x-ray. Patient and family counseled regarding signs and symptoms for which I believe and urgent re-evaluation would be necessary. Patient with good understanding of and agreement to plan and is comfortable going home at this time This document was made in part using voice recognition software. While efforts are made to proofread this document, sound alike and grammatical errors may occur. Departure - Departure Disposition: 01 Home, Self Care Clinical Impression: Contusion of right little finger Qualifiers: Encounter type: initial encounter Damage to nail status: without damage Qualified Code(s): S60.051A - Contusion of right little finger without damage to nail, initial encounter Condition: Good Instructions: ED Contusion Hand Follow-Up: Rosalina Marc ARNP [Primary Care Provider] - As Needed Comments: Your xrays are normal today. Return if you worsen. You can wear the splint as needed for comfort. Discharge Date/Time: 06/12/18 14:35
--- NOTE | 2018-06-12 13:48 | XRAY Report ---
Reason: hit on bed, now pain and swelling Procedure Date: 06/12/2018 Accession Number: [id number] / [id number] Procedure: XR - Finger(s) RT CPT Code: FULL RESULT: EXAM: RIGHT LITTLE FINGER RADIOGRAPHY EXAM DATE: 06/12/2018 01:33 PM. CLINICAL HISTORY: Hit on bed, now pain and swelling. COMPARISON: None. TECHNIQUE: 3 views. FINDINGS: Bones: No fracture or bone lesion. Joints: Degenerative change at the interphalangeal joints of the finger. The right fifth PIP joint held in flexion on all 3 projections. Soft Tissues: No soft tissue swelling. IMPRESSION: No definite acute fracture. Right fifth PIP joint held in flexion on all 3 projections. Ligamentous/tendinous injury not excluded. Degenerative changes are present. RADIA
[2018-06-12 14:29] VITALS: BP 95/60
== END 2018-06-12 14:35 | disposition home or self-care (01) ==
LOC: ED 12:21
DX: S60.051A Contusion of right little finger without damage to nail, initial encounter (principal); I10 Essential (primary) hypertension; W22.09XA Striking against other stationary object, initial encounter; Y92.009 Unspecified place in unspecified non-institutional (private) residence as the place of occurrence of the external cause
CPT/HCPCS: 73140; 99283

== ENCOUNTER 2018-10-05 08:00 | Outpatient (CLI) | payer MEDICARE, MEDICAID ==
[2018-10-05 18:10] LABS: % IRON SATURATION 22 % (20-50); ALBUMIN 2.9 g/dL (3.2-5.5); ALKALINE PHOSPHATASE 78 IU/L (42-121); ALT ALANINE AMINOTRANSFERASE 12 IU/L (10-60); AST ASPARTATE AMINOTRANSFERASE 18 IU/L (10-42); BILIRUBIN,TOTAL 0.3 mg/dL (0.2-1.0); BUN - BLOOD UREA NITROGEN 13 mg/dL (6-20); CARBON DIOXIDE - CO2 24 mmol/L (21-32); CHLORIDE 109 mmol/L (101-111); CHOL/HDL RATIO 3.8 (<4.4); CHOLESTEROL 178 mg/dL; CREATININE 0.5 mg/dL (0.4-1.0); GFR - MDRD 123 (>89); GLUCOSE 63 mg/dL (70-100); HDL CHOLESTEROL 47 mg/dL; IRON 57 ug/dL (28-170); LDL CHOLESTEROL,CALCULATED 106 mg/dL; LDL/HDL RATIO 2.3 (<4.4); SODIUM 141 mmol/L (135-145); TOTAL IRON BINDING CAPACITY 253 ug/dL (250-450); TOTAL PROTEIN 5.7 g/dL (6.7-8.2); TRANSFERRIN 181 mg/dL (192-382); VLDL CHOLESTEROL 25 mg/dL
[2018-10-05 18:12] LABS: THYROID STIMULATING HORMONE 6.04 uIU/mL (0.34-5.60)
== END 2018-10-05 23:59 | disposition home or self-care (01) ==
LOC: LAB.S 08:00
PROVIDERS: ATTEND Nurse Practitioner Family
DX: E87.6 Hypokalemia (principal); I10 Essential (primary) hypertension; R63.4 Abnormal weight loss
CPT/HCPCS: 36415; 80053; 80061; 82607; 83540; 83721; 84443; 84466

== ENCOUNTER 2018-10-05 11:02 | Outpatient (CLI) | payer MEDICARE, MEDICAID | END 2018-10-05 11:03 | disposition home or self-care (01) | LOC: RT.S 11:02 | PROVIDERS: ATTEND Acupuncturist | DX: E87.6 Hypokalemia (principal); I10 Essential (primary) hypertension; R63.4 Abnormal weight loss; K21.9 Gastro-esophageal reflux disease without esophagitis | CPT/HCPCS: 36415; 80053; 80061; 82607; 83540; 83721; 84443; 84466; 93005 ==

== ENCOUNTER 2018-10-30 18:48 | Emergency (ER) | payer MEDICARE, MEDICAID ==
[2018-10-30 19:06] VITALS: BP 96/66
--- NOTE | 2018-10-30 19:45 | XRAY Report ---
Reason: injury Procedure Date: 10/30/2018 Accession Number: [id number] / [id number] Procedure: XR - Foot 3 View RT CPT Code: FULL RESULT: EXAM: RIGHT FOOT RADIOGRAPHY EXAM DATE: 10/30/2018 07:27 PM. CLINICAL HISTORY: Injury. COMPARISON: None. TECHNIQUE: 4 views. FINDINGS: Bones: Severe diffuse demineralization of the osseous structures. This markedly decreases the sensitivity for the detection of nondisplaced fractures. The osseous structures also have a diffusely mottled appearance. Joints: No dislocation. Hallux valgus. Soft Tissues: Soft tissue swelling over the dorsum of the foot. IMPRESSION: No definite displaced fracture identified. Soft tissue swelling over the dorsum of the foot and ankle. Severe diffuse demineralization and mottled appearance of the osseous structures. RADIA
[2018-10-30] MEDS ORDERED: HYDROcod/ACETAM 5/325 MG TABLET PO STA (21:19)
--- NOTE | 2018-10-30 21:22 | ED Physician Documentation ---
PD HPI LOWER EXT INJURY - Stated complaint Stated Complaint: RT FOOT INJURY - Chief complaint Chief Complaint: Ext Problem - History obtained from History obtained from: Patient, Friend - History of Present Illness PD HPI LOW EXT INJURY LOCATION: Right (She is chronically in a wheelchair and is completely nonambulatory because of severe neuropathy in her legs. She ran her electric wheelchair into a wall yesterday foot first and has severe pain in the right foot. No other injuries.) Review of Systems Constitutional: reports: Reviewed and negative Cardiac: reports: Reviewed and negative Respiratory: reports: Reviewed and negative PD PAST MEDICAL HISTORY - Past Medical History Cardiovascular: Hypertension Neuro: Peripheral neuropathy GI: GERD Psych: Depression Musculoskeletal: Fibromyalgia - Past Surgical History Past Surgical History: Yes General: Appendectomy, Gastric surgery Ortho: ACL reconstruction - Present Medications Home Medications: Ambulatory Orders Medication Instructions Recorded Confirmed Aspirin [Aspirin EC] 81 mg PO DAILY 01/21/17 01/21/17 Duloxetine HCl 60 mg PO DAILY 01/21/17 01/21/17 Fluoxetine HCl 20 mg PO DAILY 01/21/17 01/21/17 Hydrocodone/Acetaminophen 1 tab PO Q4HR 01/21/17 01/21/17 [Hydrocodon-Acetaminophn 10-325] Levothyroxine [Synthroid] 25 mcg PO DAILY 01/21/17 01/21/17 Lisinopril 10 mg PO BID 01/21/17 01/21/17 Methadone HCl [Dolophine HCl] 5 mg PO BID 01/21/17 01/21/17 Omeprazole [PriLOSEC] 20 mg PO DAILY 01/21/17 01/21/17 Pregabalin [Lyrica] 200 mg PO BID 01/21/17 01/21/17 amLODIPine [Norvasc] 5 mg PO BID 01/21/17 01/21/17 hydrOXYzine HCl [Hydroxyzine HCl] 50 mg PO QID 01/21/17 01/21/17 Dicyclomine [Bentyl] 10 mg PO TID #15 capsule 03/20/17 LORazepam [Lorazepam] 0.5 - 1 mg PO Q8HR PRN #20 tablet 02/05/18 Methadone 5 mg PO BID 02/05/18 - Allergies Allergies/Adverse Reactions: Allergies Allergy/AdvReac Type Severity Reaction Status Date / Time latex Allergy Rash Verified 10/30/18 19:06 Penicillins Allergy Rash Verified 10/30/18 19:06 - Social History Does the pt smoke?: No Smoking Status: Never smoker Does the pt drink ETOH?: No Does the pt have substance abuse?: No - Immunizations Immunizations are current?: Yes - POLST Patient has POLST: No PD ED PE NORMAL - Vitals Vital signs reviewed: Yes - General General: Alert and oriented X 3, No acute distress - Extremities Extremities: Other (There is dropfoot both sides, and both her feet are very stiff. There is significant bruising and tenderness over the dorsal midfoot and the second toe on the right.) - Neuro Neuro: Alert and oriented X 3, Normal speech Results - Vitals Vitals: Vital Signs - 24 hr 10/30/18 19:04 Temperature 36 C L Heart Rate 71 Respiratory 18 Rate Blood Pressure 96/66 O2 Saturation 98 Oxygen O2 Source Room air - Rads (name of study) R foot 3v Radiology: EMP read contemporaneously (Severe demineralization without obvious fracture) PD MEDICAL DECISION MAKING - ED course ED course: Clinically there may be a fracture, but she is nonweightbearing and there is no displaced fracture on x-ray. She declined a fiberglass splint because her feet are chronically too tight to be completely immobilized and only wanted an Js wrap. I think this is fine because even if there is a fracture that is missed I do not think it would change attendant. Departure - Departure Disposition: 01 Home, Self Care Clinical Impression: Contusion of right foot Qualifiers: Encounter type: initial encounter Qualified Code(s): S90.31XA - Contusion of right foot, initial encounter Condition: Good Record reviewed to determine appropriate education?: Yes Instructions: ED Contusion Foot Comments: Follow-up with your doctor in 1 week for recheck. Return for new or worsening symptoms. Keep it elevated.
== END 2018-10-30 21:50 | disposition home or self-care (01) ==
LOC: ED 18:48
DX: S90.31XA Contusion of right foot, initial encounter (principal); G62.9 Polyneuropathy, unspecified; W22.01XA Walked into wall, initial encounter; I10 Essential (primary) hypertension; Z99.3 Dependence on wheelchair; Z79.82 Long term (current) use of aspirin
CPT/HCPCS: 73630; 99282; 99283; A9270

== ENCOUNTER 2018-12-09 08:00 | Outpatient (CLI) | payer MEDICARE, MEDICAID ==
[2018-12-09 18:48] LABS: BILIRUBIN,URINE NEGATIVE (NEGATIVE); GLUCOSE, URINE (UA) NEGATIVE (NEGATIVE); KETONES,URINE (UA) NEGATIVE (NEGATIVE); LEUKOCYTE ESTERASE, URINE LARGE (NEGATIVE); NITRITE,URINE POSITIVE (NEGATIVE); OCCULT BLOOD,URINE TRACE-LYSE (NEGATIVE); PH,URINE 6.5 PH (5.0-7.5); PROTEIN,URINE NEGATIVE (NEGATIVE); UROBILINOGEN,URINE 0.2 (NORMAL) E.U./dL (NORMAL)
[2018-12-09 18:56] LABS: CLARITY,URINE CLEAR (CLEAR)
[2018-12-09 19:00] LABS: BACTERIA,URINE Many /HPF (None Seen); RBC,URINE 0-5 /HPF (0-5); SQUAMOUS EPITHELIAL CELL,UR FEW Squamous (<= Few)
== END 2018-12-09 23:59 | disposition home or self-care (01) ==
LOC: LAB.R 08:00
PROVIDERS: ATTEND Nurse Practitioner Family
DX: R30.0 Dysuria (principal)
CPT/HCPCS: 81001; 81003; 87086; 87181

== ENCOUNTER 2019-02-10 12:05 | Outpatient (CLI) | payer MEDICARE, MEDICAID | END 2019-02-10 12:06 | disposition home or self-care (01) | LOC: RT 12:05 | PROVIDERS: ATTEND Acupuncturist | DX: Z79.891 Long term (current) use of opiate analgesic (principal) | CPT/HCPCS: 93005 ==

== ENCOUNTER 2019-03-11 13:39 | Outpatient (CLI) | payer MEDICARE, MEDICAID | END 2019-03-11 13:40 | disposition home or self-care (01) | LOC: RT 13:39 | PROVIDERS: ATTEND Acupuncturist | DX: Z79.891 Long term (current) use of opiate analgesic (principal) | CPT/HCPCS: 93005 ==

== ENCOUNTER 2019-05-09 06:00 | Outpatient (CLI) | payer MEDICARE, MEDICAID | END 2019-05-09 06:01 | disposition critical access hospital (66) | LOC: EMS 06:00 | PROVIDERS: ATTEND Surgery | DX: R06.00 Dyspnea, unspecified (principal) | CPT/HCPCS: A0425; A0433 ==

== ENCOUNTER 2019-05-09 06:45 | Inpatient (IN) | payer MEDICARE, MEDICAID ==
[~2019-05-09 06:45] MED LIST: MIDAZOLAM 2 MG/2 ML VIAL ONE; SUCCINYLCHOLINE 200 MG/10 ML VIAL ONE
[2019-05-09] MEDS ORDERED: PROPOFOL 1000 MG/100 ML 100 ML IV ONE (06:53)
[2019-05-09] MEDS: PROPOFOL 1000 MG/100 ML 100 ML IV STA ×2 (06:56→20:34)
[2019-05-09] MEDS ORDERED: PROPOFOL 200 MG/20 ML VIAL IVP STA (06:58)
[2019-05-09 07:14] LABS: BASOPHILS % (AUTO) 0.3 %; EOSINOPHILS # (AUTO) 0.2 10^3/uL (0.0-0.7); EOSINOPHILS % (AUTO) 1.4 %; HGB - HEMOGLOBIN 11.2 g/dL (12.0-16.0); LYMPHOCYTES # (AUTO) 1.5 10^3/uL (1.5-3.5); LYMPHOCYTES % (AUTO) 10.9 %; MEAN CORPUSCULAR HEMOGLOBIN 29.4 pg (27.0-31.0); MEAN CORPUSCULAR HGB CONC 31.3 g/dL (32.0-36.0); MEAN PLATELET VOLUME 10.9 fL (7.9-10.8); MONOCYTES # (AUTO) 0.5 10^3/uL (0.0-1.0); MONOCYTES % (AUTO) 3.4 %; NEUTROPHILS # (AUTO) 11.5 10^3/uL (1.5-6.6); NEUTROPHILS % (AUTO) 83.3 %; PLT - PLATELET COUNT 244 10^3/uL (130-450); RED BLOOD COUNT 3.81 10^6/uL (4.20-5.40); RED CELL DISTRIBUTION WIDTH 15.6 % (12.0-15.0); WHITE BLOOD COUNT 13.8 x10^3/uL (4.8-10.8)
[2019-05-09] MEDS ORDERED: fentaNYL 2,500 MCG in SODIUM CHLORIDE 0.9% 200 ML IV STA (07:23)
[2019-05-09 07:29] LABS: ALBUMIN 2.4 g/dL (3.2-5.5); ALBUMIN/GLOBULIN RATIO 0.7 (1.0-2.2); BILIRUBIN,TOTAL 0.6 mg/dL (0.2-1.0); CALCIUM 7.8 mg/dL (8.5-10.3); CREATININE 0.6 mg/dL (0.4-1.0); TOTAL PROTEIN 5.7 g/dL (6.7-8.2)
[2019-05-09 07:31] LABS: ABG BASE EXCESS -2.4 mmol/L (-2.0-3.0); ABG HCO3 20.1 mmol/L (22.0-26.0); ABG OXYGEN SATURATION 94 % (94-98); ABG PCO2 28 mmHg (34-45); ABG PH 7.47 (7.35-7.45); ABG PO2 64 mmHg (80-100)
[2019-05-09 07:38] LABS: BILIRUBIN,URINE NEGATIVE (NEGATIVE); GLUCOSE, URINE (UA) NEGATIVE (NEGATIVE); KETONES,URINE (UA) NEGATIVE (NEGATIVE); LEUKOCYTE ESTERASE, URINE NEGATIVE (NEGATIVE); NITRITE,URINE NEGATIVE (NEGATIVE); OCCULT BLOOD,URINE NEGATIVE (NEGATIVE); PH,URINE 5.5 PH (5.0-7.5); PROTEIN,URINE NEGATIVE (NEGATIVE); UROBILINOGEN,URINE 0.2 (NORMAL) E.U./dL (NORMAL)
[2019-05-09] MEDS ORDERED: fentaNYL 100 MCG/2 ML VIAL IVP STA (07:44)
--- NOTE | 2019-05-09 07:47 | ED Physician Documentation ---
History of Present Illness - Stated complaint Stated Complaint: SOA/SEVERE RESP DISTRESS - Chief complaint Chief Complaint: Resp - History obtained from History obtained from: Family, EMS - History of Present Illness Timing: Last night Improved by: unknown Worsened by: unknown - Additonal information Additional information: 69-year-old female with difficulty breathing since last night. Worsening this morning. She is bedbound and occasionally in a wheelchair. Mainly uses a Jayleen lift. No assist secondary to severe peripheral neuropathy. She has been this way for years. EMS states that she had rales upon initial exam, was tiring back of the ambulance and so they pulled over to the side of the road and intubated her. She arrives intubated. Unable to give any history. Given etomidate, succinylcholine, Lasix and nitroglycerin prior to arrival 80 mg of Lasix were given by EMS Review of Systems Unable to obtain: Intubated PD PAST MEDICAL HISTORY - Past Medical History Past Medical History: Yes Cardiovascular: Hypertension Neuro: Peripheral neuropathy GI: GERD Psych: Depression Musculoskeletal: Fibromyalgia - Past Surgical History Past Surgical History: Yes General: Appendectomy, Gastric surgery Ortho: ACL reconstruction - Present Medications Home Medications: Ambulatory Orders Medication Instructions Recorded Confirmed Aspirin [Aspirin EC] 81 mg PO DAILY 01/21/17 01/21/17 Duloxetine HCl 60 mg PO DAILY 01/21/17 01/21/17 Fluoxetine HCl 20 mg PO DAILY 01/21/17 01/21/17 Hydrocodone/Acetaminophen 1 tab PO Q4HR 01/21/17 01/21/17 [Hydrocodon-Acetaminophn 10-325] Levothyroxine [Synthroid] 25 mcg PO DAILY 01/21/17 01/21/17 Lisinopril 10 mg PO BID 01/21/17 01/21/17 Methadone HCl [Dolophine HCl] 5 mg PO BID 01/21/17 01/21/17 Omeprazole [PriLOSEC] 20 mg PO DAILY 01/21/17 01/21/17 Pregabalin [Lyrica] 200 mg PO BID 01/21/17 01/21/17 amLODIPine [Norvasc] 5 mg PO BID 01/21/17 01/21/17 hydrOXYzine HCl [Hydroxyzine HCl] 50 mg PO QID 01/21/17 01/21/17 Dicyclomine [Bentyl] 10 mg PO TID #15 capsule 03/20/17 LORazepam [Lorazepam] 0.5 - 1 mg PO Q8HR PRN #20 tablet 02/05/18 Methadone 5 mg PO BID 02/05/18 - Allergies Allergies/Adverse Reactions: Allergies Allergy/AdvReac Type Severity Reaction Status Date / Time latex Allergy Rash Verified 10/30/18 19:06 Penicillins Allergy Rash Verified 10/30/18 19:06 - Social History Does the pt smoke?: No Smoking Status: Never smoker Does the pt drink ETOH?: No Does the pt have substance abuse?: No - Immunizations Immunizations are current?: Yes - POLST Patient has POLST: No PD ED PE NORMAL - Vitals Vital signs reviewed: Yes - General General: Other (intubated) - HEENT HEENT: PERRL, Moist mucous membranes, Pharynx benign - Neck Neck: Supple, no meningeal sign - Cardiac Cardiac: RRR - Respiratory Respiratory: Other (Rales bilaterally) - Abdomen Abdomen: Soft, Non tender, Non distended - Derm Derm: Warm and dry - Extremities Extremities: Other (1+ bilateral edema) - Neuro Neuro: Other (Intubated, sedated) Results - Vitals Vitals: Vital Signs - 24 hr 05/09/19 05/09/19 05/09/19 06:46 07:03 07:08 Temperature 37.1 C Heart Rate 87 76 75 Respiratory 14 19 14 Rate Blood Pressure 141/81 H 125/84 H 120/67 O2 Saturation 100 100 100 05/09/19 05/09/19 05/09/19 07:15 07:18 07:28 Temperature Heart Rate 73 76 71 Respiratory 16 21 Rate Blood Pressure 110/64 115/91 H O2 Saturation 100 100 05/09/19 05/09/19 05/09/19 07:30 07:34 07:38 Temperature 36.9 C 36.9 C 36.9 C Heart Rate 71 70 69 Respiratory 18 17 12 Rate Blood Pressure 105/60 102/61 94/59 L O2 Saturation 100 100 100 05/09/19 05/09/19 05/09/19 07:43 07:48 07:52 Temperature 36.9 C 36.9 C 36.9 C Heart Rate 69 69 67 Respiratory 14 12 12 Rate Blood Pressure 98/58 L 93/63 94/57 L O2 Saturation 100 100 100 0905/09/19 05/09/19 08:02 08:07 08:13 Temperature 36.9 C 36.9 C 37 C Heart Rate 68 69 70 Respiratory 12 11 L 12 Rate Blood Pressure 89/56 L 93/56 L 98/56 L O2 Saturation 100 100 100 05/09/19 08:17 Temperature 37 C Heart Rate 69 Respiratory 12 Rate Blood Pressure 100/59 L O2 Saturation 100 Oxygen O2 Source Mechanical ventilator - EKG (time done) 0652 Rate: Rate (enter#) (93) Rhythm: NSR [place]: Normal Intervals: Normal [place] QRS: Normal Ischemia: ST depression (minimal v3-4) Other comments: Other comments (low voltage) - Labs Labs: Laboratory Tests 05/09/19 05/09/19 05/09/19 06:57 07:05 07:05 WBC 13.8 H RBC 3.81 L Hgb 11.2 L Hct 35.8 L MCV 94.0 MCH 29.4 MCHC 31.3 L RDW 15.6 H Plt Count 244 MPV 10.9 H Neut # (Auto) 11.5 H Lymph # (Auto) 1.5 [place] # (Auto) 0.5 Eos # (Auto) 0.2 Baso # (Auto) 0.0 Absolute Nucleated RBC 0.00 Nucleated RBC % 0.0 PT 13.0 H INR 1.1 APTT 40.3 H Bld Gas Analysis Time 0706 ABG pH 7.47 H ABG pCO2 28 L ABG pO2 64 L ABG HCO3 20.1 L ABG Total CO2 21.0 ABG O2 Saturation 94 ABG Base Excess -2.4 L Kareem Test NOT APPLICABLE Sodium Potassium Chloride Carbon Dioxide Anion Gap BUN Creatinine Estimated GFR (MDRD) Glucose Lactic Acid Calcium Total Bilirubin AST ALT Alkaline Phosphatase Troponin I High Sens B-Natriuretic Peptide Total Protein Albumin Globulin Albumin/Globulin Ratio Lipase Urine Color Urine Clarity Urine pH Ur Specific [place] Urine Protein Urine Glucose (UA) Urine Ketones Urine Occult Blood Urine Nitrite Urine Bilirubin Urine Urobilinogen Ur Leukocyte Esterase Ur Microscopic Review Urine Culture Comments 05/09/19 05/09/19 05/09/19 07:05 07:05 07:05 WBC RBC Hgb Hct MCV MCH MCHC RDW Plt Count MPV Neut # (Auto) Lymph # (Auto) [place] # (Auto) Eos # (Auto) Baso # (Auto) Absolute Nucleated RBC Nucleated RBC % PT INR APTT Bld Gas Analysis Time ABG pH ABG pCO2 ABG pO2 ABG HCO3 ABG Total CO2 ABG O2 Saturation ABG Base Excess Kareem Test Sodium 137 Potassium 3.9 Chloride 107 Carbon Dioxide 21 Anion Gap 9.0 BUN 10 Creatinine 0.6 Estimated GFR (MDRD) 100 Glucose 86 Lactic Acid 1.8 Calcium 7.8 L Total Bilirubin 0.6 AST 19 ALT 11 Alkaline Phosphatase 123 H Troponin I High Sens B-Natriuretic Peptide 568 H Total Protein 5.7 L Albumin 2.4 L Globulin 3.3 Albumin/Globulin Ratio 0.7 L Lipase 14 L Urine Color Urine Clarity Urine pH Ur Specific [place] Urine Protein Urine Glucose (UA) Urine Ketones Urine Occult Blood Urine Nitrite Urine Bilirubin Urine Urobilinogen Ur Leukocyte Esterase Ur Microscopic Review Urine Culture Comments 05/09/19 05/09/19 07:05 07:25 WBC RBC Hgb Hct MCV MCH MCHC RDW Plt Count MPV Neut # (Auto) Lymph # (Auto) [place] # (Auto) Eos # (Auto) Baso # (Auto) Absolute Nucleated RBC Nucleated RBC % PT INR APTT Bld Gas Analysis Time ABG pH ABG pCO2 ABG pO2 ABG HCO3 ABG Total CO2 ABG O2 Saturation ABG Base Excess Kareem Test Sodium Potassium Chloride Carbon Dioxide Anion Gap BUN Creatinine Estimated GFR (MDRD) Glucose Lactic Acid Calcium Total Bilirubin AST ALT Alkaline Phosphatase Troponin I High Sens 10.1 B-Natriuretic Peptide Total Protein Albumin Globulin Albumin/Globulin Ratio Lipase Urine Color YELLOW Urine Clarity CLEAR Urine pH 5.5 Ur Specific [place] 1.010 Urine Protein NEGATIVE Urine Glucose (UA) NEGATIVE Urine Ketones NEGATIVE Urine Occult Blood NEGATIVE Urine Nitrite NEGATIVE Urine Bilirubin NEGATIVE Urine Urobilinogen 0.2 (NORMAL) Ur Leukocyte Esterase NEGATIVE Ur Microscopic Review NOT INDICATED Urine Culture Comments NOT INDICATED - Rads (name of study) cxr Radiology: Prelim report reviewed, EMP read contemporaneously, See rad report (Endotracheal tube terminates 5 cm from the darrius. 2. Asymmetric bilateral patchy airspace opacities, concerning for aspiration or pneumonia. Superimposed mild-moderate pulmonary edema is difficult to exclude. 3. Small bilateral pleural effusions. ) PD MEDICAL DECISION MAKING - ED course Complexity details: reviewed results, re-evaluated patient, considered differential, d/w family, d/w [facility] consultant ED course: 69-year-old female with what appears to be diffuse pulmonary edema. Symptoms and history not c/w pneumonia. Possible new onset CHF? She is bedbound at home. 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 Per her sister, she is full code. Patient is on a propofol and fentanyl drip. Will admit to the ICU. Discussed the case with Dr. Olmos, hospitalist who accepts. This document was made in part using voice recognition software. While efforts are made to proofread this document, sound alike and grammatical errors may occur. - Critical Care Time(min): 40 Time Includes: Direct patient care, Review records, Reassess patient, Document care, Coordinate care, Medical consult, Family consult for tx dec, See progress note Data interpretation: See progress note Procedures included in critical care time: See progress note Procedures excluded from critical care time: See progress note Departure - Departure Disposition: 66 [facility] DC/Xfer Clinical Impression: Respiratory failure Qualifiers: Chronicity: acute Respiratory failure complication: hypoxia Qualified Code(s): J96.01 - Acute respiratory failure with hypoxia Pulmonary edema Qualifiers: Chronicity: acute Qualified Code(s): J81.0 - Acute pulmonary edema Condition: Serious
[2019-05-09 07:52] LABS: CLARITY,URINE CLEAR (CLEAR)
[2019-05-09] MEDS ORDERED: fentaNYL 100 MCG/2 ML VIAL ONE (07:58)
[2019-05-09 08:17] LABS: INR 1.1 (0.8-1.2)
--- NOTE | 2019-05-09 08:21 | XRAY Report ---
Reason: respiratory failure, intubated Procedure Date: 05/09/2019 Accession Number: [id number] / [id number] Procedure: XR - Chest 1 View X-Ray CPT Code: 37396 FULL RESULT: EXAM: CHEST RADIOGRAPHY EXAM DATE: 05/09/2019 07:20 AM. CLINICAL HISTORY: Respiratory failure, intubated. COMPARISON: Chest radiograph from 08/31/2011. TECHNIQUE: 1 view. FINDINGS: Lungs/Pleura: There are patchy airspace opacities throughout both lungs, asymmetrically greater on the right. Small bilateral pleural effusions are present. No definite pneumothorax by supine film. Mediastinum: There is obscuration of the cardiomediastinal contour. Central pulmonary vasculature appears engorged but it is difficult to assess. Other: Endotracheal tube terminates approximately 5 cm from the darrius. IMPRESSION: 1. Endotracheal tube terminates 5 cm from the darrius. 2. Asymmetric bilateral patchy airspace opacities, concerning for aspiration or pneumonia. Superimposed mild-moderate pulmonary edema is difficult to exclude. 3. Small bilateral pleural effusions. RADIA
[2019-05-09] MEDS ORDERED: ONDANSETRON ODT 4 MG TABLET TL PRN (08:24)
[2019-05-09] MEDS ORDERED: ONDANSETRON 4 MG/2 ML VIAL IVP PRN (08:24)
[2019-05-09 08:25] LABS: PARTIAL THROMBOPLASTIN TIME 40.3 secs (24.9-33.3)
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
[2019-05-09] MEDS ORDERED: PROCHLORPERAZINE 10 MG/2 ML VIAL IVP PRN (08:50)
[2019-05-09] MEDS ORDERED: SODIUM CHLORIDE 0.9% 500 ML IV ONE (09:05)
[2019-05-09 09:30] LABS: MUDS CUTOFF CONCENTRATIONS CUTOFF CONC BELOW:
--- NOTE | 2019-05-09 09:32 | XRAY Report ---
Reason: OG tube placement Procedure Date: 05/09/2019 Accession Number: [id number] / [id number] Procedure: XR - Chest 1 View X-Ray CPT Code: 95269 FULL RESULT: EXAM: CHEST RADIOGRAPHY EXAM DATE: 05/09/2019 08:54 AM. CLINICAL HISTORY: OG tube placement. COMPARISON: CHEST 1 VIEW 05/09/2019 7:04 AM. TECHNIQUE: 1 view. FINDINGS: Lungs/Pleura: Bilateral perihilar ill-defined opacities, right more than left are unchanged. A least a small left pleural effusion does not appear different in size. No pneumothoraces. Mediastinum: Endotracheal tube is again seen, with interval placement of orogastric tube. The tip is near the level of the GE junction. Other: None. IMPRESSION: Tip of the orogastric tube is at the level of the GE junction. Consider advancing 6 cm. Otherwise no change compared to 7:04 AM. RADIA The call report notification system was initiated by Dr. Deion Pratt at 09:30 AM on 05/09/2019. ADDENDUM: 05/09/19 09:36 The Provider was NOTIFIED Of The Findings And The Location Of The Og Tube Tip by Dr. Deion Pratt at 09:36 AM on 05/09/2019.
[2019-05-09 09:41] LABS: AMPHETAMINE SCREEN,URINE NEGATIVE (NEGATIVE); BENZODIAZEPINES SCREEN, URINE NEGATIVE (NEGATIVE); COCAINE SCREEN URINE NEGATIVE (NEGATIVE); METHADONE SCREEN, URINE NEGATIVE (NEGATIVE); METHAMPHETAMINES SCREEN, URINE NEGATIVE (NEGATIVE); OPIATE SCREEN, URINE NEGATIVE (NEGATIVE); OXYCODONE SCREEN, URINE POSITIVE (NEGATIVE); PROPOXYPHENE SCREEN, URINE NEGATIVE (NEGATIVE); TRICYCLIC ANTIDEPRESSANT,URINE NEGATIVE (NEGATIVE)
[2019-05-09 10:11] LABS: ACETAMINOPHEN < 10 ug/mL (10-30); SALICYLATE < 6.0 mg/dL
[2019-05-09] MEDS ORDERED: SODIUM CHLORIDE 0.9% 1,000 ML IV ONE (10:12)
--- NOTE | 2019-05-09 10:13 | ED Physician Documentation ---
Procedures - Central Line Central Line Preparation: Consent Obtained (sister), Time out completed, Ultrasound used, Sterile prep and drape Central line location: Right IJ Central line type: Triple lumen Central line aftercare: Chlorhexidine disc placed, Secured, Placement confirmed, No pneumothorax, No complications, Bundle checklist complete, Pt tolerated well
--- NOTE | 2019-05-09 10:42 | XRAY Report ---
Reason: S/P CENTRAL LINE Procedure Date: 05/09/2019 Accession Number: [id number] / [id number] Procedure: XR - Chest for Line Placement CPT Code: FULL RESULT: EXAM: CHEST RADIOGRAPHY EXAM DATE: 05/09/2019 10:29 AM. CLINICAL HISTORY: Central line placement. COMPARISON: CHEST 1 VIEW 05/09/2019 8:40 AM. TECHNIQUE: 1 view. FINDINGS: Lungs/Pleura: Extensive hazy and patchy airspace opacities. Underlying effusions may be present. No pneumothorax. Mediastinum: Within exam limitations, the cardiomediastinal contour is normal. Other: Endotracheal tube terminates 3.5 cm above darrius. Enteric tube extends into the proximal stomach. New right-sided central line terminates at the cavoatrial junction. IMPRESSION: 1. Lines and tubes appear appropriate as above. 2. Extensive bilateral airspace opacities unchanged. RADIA
[2019-05-09] MEDS: SODIUM CHLORIDE FLUSH 0.9% 10 ML SYRINGE IVP SCH ×2 (11:31→17:21)
[2019-05-09] MEDS: SODIUM CHLORIDE 0.9% 1,000 ML IV SCH ×2 (11:31→21:36)
[2019-05-09] MEDS: ENALAPRILAT 1.25 MG/ML VIAL IVP SCH ×2 (11:52→17:15)
[2019-05-09] MEDS ORDERED: SODIUM CHLORIDE 0.9% IV SCH (12:00)
[2019-05-09] MEDS ORDERED: FENTANYL IV SCH (12:00)
[2019-05-09] MEDS: FUROSEMIDE 40 MG/4 ML VIAL IVP SCH (17:21)
[2019-05-09 23:42] LABS: ABG PCO2 37 mmHg (34-45); ABG PH 7.41 (7.35-7.45)
[2019-05-09 23:43] LABS: ABG BASE EXCESS -1.8 mmol/L (-2.0-3.0); ABG HCO3 22.5 mmol/L (22.0-26.0); ABG OXYGEN SATURATION 99 % (94-98); ABG PO2 209 mmHg (80-100); ABG TCO2 23.7 MMOL/L (21.0-29.0); ALLEN TEST POSITIVE
[2019-05-10] MEDS: ENALAPRILAT 1.25 MG/ML VIAL IVP SCH ×5 (00:21→23:37)
[2019-05-10] MEDS: SODIUM CHLORIDE FLUSH 0.9% 10 ML SYRINGE IVP SCH ×3 (00:22→16:26)
[2019-05-10] MEDS: CHLORHEXIDINE GLUCONATE 15 ML UDC PO SCH ×3 (01:20→21:05)
[2019-05-10] MEDS ORDERED: PROPOFOL 1000 MG/100 ML 100 ML IV ONE (04:04)
[2019-05-10] MEDS: SODIUM CHLORIDE FLUSH 0.9% 10 ML SYRINGE IVP PRN ×3 (05:21→14:19)
[2019-05-10 05:39] LABS: ABG BASE EXCESS -3.4 mmol/L (-2.0-3.0); ABG HCO3 21.2 mmol/L (22.0-26.0); ABG OXYGEN SATURATION 97 % (94-98); ABG PCO2 36 mmHg (34-45); ABG PH 7.39 (7.35-7.45); ABG PO2 93 mmHg (80-100); ABG TCO2 22.3 MMOL/L (21.0-29.0); ALLEN TEST POSITIVE
[2019-05-10 05:50] LABS: BASOPHILS % (AUTO) 0.3 %; EOSINOPHILS # (AUTO) 0.1 10^3/uL (0.0-0.7); EOSINOPHILS % (AUTO) 0.9 %; HGB - HEMOGLOBIN 9.4 g/dL (12.0-16.0); LYMPHOCYTES # (AUTO) 0.8 10^3/uL (1.5-3.5); LYMPHOCYTES % (AUTO) 12.1 %; MEAN CORPUSCULAR HGB CONC 31.9 g/dL (32.0-36.0); MONOCYTES # (AUTO) 0.4 10^3/uL (0.0-1.0); MONOCYTES % (AUTO) 5.5 %; NEUTROPHILS # (AUTO) 5.6 10^3/uL (1.5-6.6); NEUTROPHILS % (AUTO) 80.6 %; PLT - PLATELET COUNT 206 10^3/uL (130-450); RED BLOOD COUNT 3.24 10^6/uL (4.20-5.40); RED CELL DISTRIBUTION WIDTH 15.4 % (12.0-15.0)
[2019-05-10] MEDS: FUROSEMIDE 40 MG/4 ML VIAL IVP SCH ×2 (06:17→14:19)
[2019-05-10] MEDS: SODIUM CHLORIDE 0.9% 1,000 ML IV SCH ×2 (06:18→07:44)
[2019-05-10 06:21] LABS: ABSOLUTE RETICS # AUTO 0.092 10^6/uL (0.020-0.110); RED BLOOD COUNT 3.26 10^6/uL (4.20-5.40)
[2019-05-10] MEDS: PROPOFOL 1000 MG/100 ML 100 ML IV STA (06:26)
[2019-05-10 06:37] LABS: FERRITIN 63.6 ng/mL (11.0-306.8)
[2019-05-10 06:49] LABS: BUN - BLOOD UREA NITROGEN 9 mg/dL (6-20); CALCIUM 6.9 mg/dL (8.5-10.3); CARBON DIOXIDE - CO2 22 mmol/L (21-32); CHLORIDE 113 mmol/L (101-111); CREATININE 0.4 mg/dL (0.4-1.0); GFR - MDRD 159 (>89); GLUCOSE 67 mg/dL (70-100); IRON < 6 ug/dL (28-170); MAGNESIUM 1.4 mg/dL (1.7-2.8); PHOSPHORUS 2.6 mg/dL (2.5-4.6); SODIUM 143 mmol/L (135-145); TOTAL IRON BINDING CAPACITY 109 ug/dL (250-450); TRANSFERRIN 78 mg/dL (192-382)
[2019-05-10] MEDS ORDERED: MAGNESIUM SULFATE 2 GRAM 2 GM/50 ML BAG IV ONE (06:56)
[2019-05-10] MEDS ORDERED: PROPOFOL 1000 MG/100 ML 100 ML IV SCH (07:00)
[2019-05-10] MEDS: POTASSIUM CHLOR 20 MEQ/100 ML 20 MEQ/100 ML BAG IV SCH ×4 (07:29→10:26)
[2019-05-10 07:46] LABS: VBG PH 7.366 (7.31-7.41)
[2019-05-10] MEDS ORDERED: CALCIUM GLUCONATE 1,000 MG in SODIUM CHLORIDE 0.9% 50 ML IV ONE (08:10)
[2019-05-10] MEDS ORDERED: CALCIUM GLUCONATE 1000 MG/10 ML VIAL ONE (08:51)
--- NOTE | 2019-05-10 09:09 | PROVIDER PROGRESS NOTE ---
Subjective - Prog Note Date Prog Note Date: 05/10/19 Prog Note Time: 09:24 - Subjective Subjective: overnight, no new problems. on fentanyl and propofol. Needing minimal vent support. No fever. Current Medications - Current Medications Current Medications: Active Medications Chlorhexidine Gluconate (Peridex) 15 ml PO BID [facility] Last Admin: 05/10/19 09:19 Dose: 15 ml Enalaprilat (Vasotec Inj) 0.625 mg IVP Q6HR [facility] Last Admin: 05/10/19 06:16 Dose: Not Given Furosemide (Lasix Inj 40 Mg Vial) 40 mg IVP BIDDIURETIC [facility] Last Admin: 05/10/19 06:17 Dose: 40 mg Hydromorphone HCl (Dilaudid Inj Syringe) 0.5 mg IVP Q2H PRN PRN Reason: Pain 8 to 10 Fentanyl 5,000 mcg/ Sodium (Chloride) 500 mls @ 5.5 mls/hr IV .Q72H [facility]QUAN; Protocol Last Titration: 05/10/19 08:54 Dose: 2 mcg/kg/hr, 11 mls/hr Norepinephrine Bitartrate 8 mg (/ Dextrose) 250 mls @ 15 mls/hr IV .[id number] [facility]QUAN; Protocol Last Titration: 05/10/19 08:00 Dose: 2 mcg/min, 3.75 mls/hr Propofol (Diprivan) 100 mls @ 3.36 mls/hr IV .[id number] [facility]; Protocol Last Titration: 05/10/19 08:58 Dose: 20 mcg/kg/min, 6.72 mls/hr Potassium Chloride (Potassium Chloride) 20 meq in 100 mls @ 100 mls/hr IV Q1H [facility] Stop: 05/10/19 10:59 Last Admin: 05/10/19 09:24 Dose: 100 mls/hr Multivitamins 10 ml/ Thiamine HCl 100 mg/ Folic Acid 1 mg/Potassium Chloride/Dextrose/Sod Cl 1,011.2 mls @ 85 mls/hr IV DAILY [facility] Prochlorperazine Edisylate (Compazine Inj) 10 mg IVP Q4HR PRN PRN Reason: Nausea / Vomiting Sodium Chloride (Normal Saline Flush 0.9%) 10 ml IVP 0100,0900,1700 [facility] Last Admin: 09/23/19 00:22 Dose: 10 ml Sodium Chloride (Normal Saline Flush 0.9%) 10 ml IVP PRN PRN PRN Reason: NEEDED PER PROVIDER ORDERS Last Admin: 05/10/19 06:19 Dose: 20 ml Aspirin [Aspirin EC] 81 mg PO DAILY 01/21/17 Duloxetine HCl 60 mg PO DAILY 01/21/17 Fluoxetine HCl 20 mg PO DAILY 01/21/17 Hydrocodone/Acetaminophen [Hydrocodon-Acetaminophn 10-325] 1 tab PO Q4HR 01/21/17 Levothyroxine [Synthroid] 25 mcg PO DAILY 01/21/17 Lisinopril 10 mg PO BID 01/21/17 Methadone HCl [Dolophine HCl] 5 mg PO BID 01/21/17 Omeprazole [PriLOSEC] 20 mg PO DAILY 01/21/17 Pregabalin [Lyrica] 200 mg PO BID 01/21/17 amLODIPine [Norvasc] 5 mg PO BID 01/21/17 hydrOXYzine HCl [Hydroxyzine HCl] 50 mg PO QID 01/21/17 Methadone 5 mg PO BID 02/05/18 Objective - Vital Signs/Intake & Output Reviewed Vital Signs: Yes Vital Signs: Vital Signs Temp Pulse Pulse Resp BP Pulse Ox 05/10/19 09:07 96/61 05/10/19 08:01 69 05/10/19 08:00 37.8 C H 69 11 L 98/57 L 99 05/10/19 07:00 69 14 106/59 L 99 05/10/19 06:01 64 05/10/19 06:00 37.5 C 65 12 107/56 L 99 05/10/19 05:15 68 13 05/10/19 05:10 69 13 Intake & Output: Intake & Output 05/07/19 05/08/19 05/09/19 05/10/19 23:59 23:59 23:59 23:59 Intake Total 2952.927 1539.162 Output Total 6570 815 Balance 742.927 724.162 - Objective General Appearance: positive: No acute distress, Other (intubated, sedated, cachectic white female who looks much, much older than stated age) Eyes Bilateral: positive: PERRL, EOMI ENT: positive: Pharynx nml, Other (diffuse alopecia, no eyebrows) Neck: positive: No JVD. negative: Stiff neck, Carotid bruit Respiratory: positive: Chest non-tender. negative: Wheezes, Rales, Rhonchi Cardiovascular: positive: Regular rate & rhythm, Systolic murmur. negative: Gallop/S4, Friction rub Abdomen: positive: Non-tender, No organomegaly, Nml bowel sounds, No distention Skin: positive: Warm, Dry, Pallor (very) Extremities: positive: No pedal edema, Other (severe loss of muscle mass, cool hands and feet) Neurologic/Psychiatric: positive: Other (intubated) - Lab Results Fish Bones: 05/10/19 05:25 05/10/19 05:25 Other Labs: Lab Results x24hrs 05/10/19 05/10/19 05/10/19 Range/Units 07:35 05:25 05:25 WBC (4.8-10.8) x10^3/uL RBC (4.20-5.40) 10^6/uL Hgb (12.0-16.0) g/dL Hct (37.0-47.0) % MCV (81.0-99.0) fL MCH (27.0-31.0) pg MCHC (32.0-36.0) g/dL RDW (12.0-15.0) % Plt Count (130-450) 10^3/uL MPV (7.9-10.8) fL Reticulocyte % (Auto) (0.5-2.3) % Neut # (Auto) (1.5-6.6) 10^3/uL Lymph # (Auto) (1.5-3.5) 10^3/uL [place] # (Auto) (0.0-1.0) 10^3/uL Eos # (Auto) (0.0-0.7) 10^3/uL Baso # (Auto) (0.0-0.1) 10^3/uL Absolute Nucleated RBC x10^3/uL Nucleated RBC % /100WBC Absolute Retic (0.020-0.110) 10^6/uL Bld Gas Analysis Time Sample Site ABG pH (7.35-7.45) ABG pCO2 (34-45) mmHg ABG pO2 (80-100) mmHg ABG HCO3 (22.0-26.0) mmol/L ABG Total CO2 (21.0-29.0) MMOL/L ABG O2 Saturation (94-98) % ABG Base Excess (-2.0-3.0) mmol/L Kareem Test VBG pH 7.366 (7.31-7.41) Ionized Calcium 1.01 L (1.15-1.33) mmol/L Respiration Rate b/min O2 Delivery Device Vent Mode FiO2 Tidal Volume mL PEEP cmH2O Pressure Support Vent cmH2O Sodium (135-145) mmol/L Potassium (3.5-5.0) mmol/L Chloride (101-111) mmol/L Carbon Dioxide (21-32) mmol/L Anion Gap (6-13) BUN (6-20) mg/dL Creatinine (0.4-1.0) mg/dL Estimated GFR (MDRD) (>89) Glucose (70-100) mg/dL Calcium (8.5-10.3) mg/dL Phosphorus (2.5-4.6) mg/dL Magnesium (1.7-2.8) mg/dL Iron (28-170) ug/dL TIBC (250-450) ug/dL Transferrin (192-382) mg/dL Ferritin 63.6 (11.0-306.8) ng/mL Lactate Dehydrogenase 130 (91-225) IU/L Troponin I High Sens (2.3-14.8) pg/mL B-Natriuretic Peptide (5-100) pg/mL Vitamin B12 176 L (180-914) pg/mL Nasal Screen MRSA (PCR) (NEGATIVE) Salicylates mg/dL Urine Opiates Screen (NEGATIVE) Ur Oxycodone Screen (NEGATIVE) Urine Methadone Screen (NEGATIVE) Ur Propoxyphene Screen (NEGATIVE) Acetaminophen (10-30) ug/mL Ur Barbiturates Screen (NEGATIVE) Ur Tricyclics Screen (NEGATIVE) Ur Phencyclidine Scrn (NEGATIVE) Ur Amphetamine Screen (NEGATIVE) U Methamphetamines Scrn (NEGATIVE) U Benzodiazepines Scrn (NEGATIVE) Urine Cocaine Screen (NEGATIVE) U Cannabinoids Screen (NEGATIVE) Ethyl Alcohol mg/dL 05/10/19 05/10/19 05/10/19 Range/Units 05:25 05:25 05:25 WBC (4.8-10.8) x10^3/uL RBC 3.26 L (4.20-5.40) 10^6/uL Hgb (12.0-16.0) g/dL Hct (37.0-47.0) % MCV (81.0-99.0) fL MCH (27.0-31.0) pg MCHC (32.0-36.0) g/dL RDW (12.0-15.0) % Plt Count (130-450) 10^3/uL MPV (7.9-10.8) fL Reticulocyte % (Auto) 2.83 H (0.5-2.3) % Neut # (Auto) (1.5-6.6) 10^3/uL Lymph # (Auto) (1.5-3.5) 10^3/uL [place] # (Auto) (0.0-1.0) 10^3/uL Eos # (Auto) (0.0-0.7) 10^3/uL Baso # (Auto) (0.0-0.1) 10^3/uL Absolute Nucleated RBC x10^3/uL Nucleated RBC % /100WBC Absolute Retic 0.092 (0.020-0.110) 10^6/uL Bld Gas Analysis Time Sample Site ABG pH (7.35-7.45) ABG pCO2 (34-45) mmHg ABG pO2 (80-100) mmHg ABG HCO3 (22.0-26.0) mmol/L ABG Total CO2 (21.0-29.0) MMOL/L ABG O2 Saturation (94-98) % ABG Base Excess (-2.0-3.0) mmol/L Kareem Test VBG pH (7.31-7.41) Ionized Calcium (1.15-1.33) mmol/L Respiration Rate b/min O2 Delivery Device Vent Mode FiO2 Tidal Volume mL PEEP cmH2O Pressure Support Vent cmH2O Sodium 143 (135-145) mmol/L Potassium 2.8 L (3.5-5.0) mmol/L Chloride 113 H (101-111) mmol/L Carbon Dioxide 22 (21-32) mmol/L Anion Gap 8.0 (6-13) BUN 9 (6-20) mg/dL Creatinine 0.4 (0.4-1.0) mg/dL Estimated GFR (MDRD) 159 (>89) Glucose 67 L (70-100) mg/dL Calcium 6.9 L (8.5-10.3) mg/dL Phosphorus 2.6 (2.5-4.6) mg/dL Magnesium 1.4 L (1.7-2.8) mg/dL Iron < 6 L (28-170) ug/dL TIBC 109 L (250-450) ug/dL Transferrin 78 L (192-382) mg/dL Ferritin (11.0-306.8) ng/mL Lactate Dehydrogenase (91-225) IU/L Troponin I High Sens (2.3-14.8) pg/mL B-Natriuretic Peptide 728 H (5-100) pg/mL Vitamin B12 (180-914) pg/mL Nasal Screen MRSA (PCR) (NEGATIVE) Salicylates mg/dL Urine Opiates Screen (NEGATIVE) Ur Oxycodone Screen (NEGATIVE) Urine Methadone Screen (NEGATIVE) Ur Propoxyphene Screen (NEGATIVE) Acetaminophen (10-30) ug/mL Ur Barbiturates Screen (NEGATIVE) Ur Tricyclics Screen (NEGATIVE) Ur Phencyclidine Scrn (NEGATIVE) Ur Amphetamine Screen (NEGATIVE) U Methamphetamines Scrn (NEGATIVE) U Benzodiazepines Scrn (NEGATIVE) Urine Cocaine Screen (NEGATIVE) U Cannabinoids Screen (NEGATIVE) Ethyl Alcohol mg/dL 05/10/19 05/10/19 05/09/19 Range/Units 05:25 05:12 23:32 WBC 7.0 (4.8-10.8) x10^3/uL RBC 3.24 L (4.20-5.40) 10^6/uL Hgb 9.4 L (12.0-16.0) g/dL Hct 29.5 L (37.0-47.0) % MCV 91.0 (81.0-99.0) fL MCH 29.0 (27.0-31.0) pg MCHC 31.9 L (32.0-36.0) g/dL RDW 15.4 H (12.0-15.0) % Plt Count 206 (130-450) 10^3/uL MPV 11.0 H (7.9-10.8) fL Reticulocyte % (Auto) (0.5-2.3) % Neut # (Auto) 5.6 (1.5-6.6) 10^3/uL Lymph # (Auto) 0.8 L (1.5-3.5) 10^3/uL [place] # (Auto) 0.4 (0.0-1.0) 10^3/uL Eos # (Auto) 0.1 (0.0-0.7) 10^3/uL Baso # (Auto) 0.0 (0.0-0.1) 10^3/uL Absolute Nucleated RBC 0.00 x10^3/uL Nucleated RBC % 0.0 /100WBC Absolute Retic (0.020-0.110) 10^6/uL Bld Gas Analysis Time 8192 6415 Sample Site RIGHT RADIAL LEFT RADIAL ABG pH 7.39 7.41 (7.35-7.45) ABG pCO2 36 37 (34-45) mmHg ABG pO2 93 209 H* (80-100) mmHg ABG HCO3 21.2 L 22.5 (22.0-26.0) mmol/L ABG Total CO2 22.3 23.7 (21.0-29.0) MMOL/L ABG O2 Saturation 97 99 H (94-98) % ABG Base Excess -3.4 L -1.8 (-2.0-3.0) mmol/L Kareem Test POSITIVE POSITIVE VBG pH (7.31-7.41) Ionized Calcium (1.15-1.33) mmol/L Respiration Rate 12 12 b/min O2 Delivery Device VENTILATOR VENTILATOR Vent Mode SIMV SIMV FiO2 24.00 50.00 Tidal Volume 450 450 mL PEEP 5 5 cmH2O Pressure Support Vent 10 10 cmH2O Sodium (135-145) mmol/L Potassium (3.5-5.0) mmol/L Chloride (101-111) mmol/L Carbon Dioxide (21-32) mmol/L Anion Gap (6-13) BUN (6-20) mg/dL Creatinine (0.4-1.0) mg/dL Estimated GFR (MDRD) (>89) Glucose (70-100) mg/dL Calcium (8.5-10.3) mg/dL Phosphorus (2.5-4.6) mg/dL Magnesium (1.7-2.8) mg/dL Iron (28-170) ug/dL TIBC (250-450) ug/dL Transferrin (192-382) mg/dL Ferritin (11.0-306.8) ng/mL Lactate Dehydrogenase (91-225) IU/L Troponin I High Sens (2.3-14.8) pg/mL B-Natriuretic Peptide (5-100) pg/mL Vitamin B12 (180-914) pg/mL Nasal Screen MRSA (PCR) (NEGATIVE) Salicylates mg/dL Urine Opiates Screen (NEGATIVE) Ur Oxycodone Screen (NEGATIVE) Urine Methadone Screen (NEGATIVE) Ur Propoxyphene Screen (NEGATIVE) Acetaminophen (10-30) ug/mL Ur Barbiturates Screen (NEGATIVE) Ur Tricyclics Screen (NEGATIVE) Ur Phencyclidine Scrn (NEGATIVE) Ur Amphetamine Screen (NEGATIVE) U Methamphetamines Scrn (NEGATIVE) U Benzodiazepines Scrn (NEGATIVE) Urine Cocaine Screen (NEGATIVE) U Cannabinoids Screen (NEGATIVE) Ethyl Alcohol mg/dL 05/09/19 05/09/19 05/09/19 Range/Units 12:15 11:20 09:40 WBC (4.8-10.8) x10^3/uL RBC (4.20-5.40) 10^6/uL Hgb (12.0-16.0) g/dL Hct (37.0-47.0) % MCV (81.0-99.0) fL MCH (27.0-31.0) pg MCHC (32.0-36.0) g/dL RDW (12.0-15.0) % Plt Count (130-450) 10^3/uL MPV (7.9-10.8) fL Reticulocyte % (Auto) (0.5-2.3) % Neut # (Auto) (1.5-6.6) 10^3/uL Lymph # (Auto) (1.5-3.5) 10^3/uL [place] # (Auto) (0.0-1.0) 10^3/uL Eos # (Auto) (0.0-0.7) 10^3/uL Baso # (Auto) (0.0-0.1) 10^3/uL Absolute Nucleated RBC x10^3/uL Nucleated RBC % /100WBC Absolute Retic (0.020-0.110) 10^6/uL Bld Gas Analysis Time Sample Site ABG pH (7.35-7.45) ABG pCO2 (34-45) mmHg ABG pO2 (80-100) mmHg ABG HCO3 (22.0-26.0) mmol/L ABG Total CO2 (21.0-29.0) MMOL/L ABG O2 Saturation (94-98) % ABG Base Excess (-2.0-3.0) mmol/L Kareem Test VBG pH (7.31-7.41) Ionized Calcium (1.15-1.33) mmol/L Respiration Rate b/min O2 Delivery Device Vent Mode FiO2 Tidal Volume mL PEEP cmH2O Pressure Support Vent cmH2O Sodium (135-145) mmol/L Potassium (3.5-5.0) mmol/L Chloride (101-111) mmol/L Carbon Dioxide (21-32) mmol/L Anion Gap (6-13) BUN (6-20) mg/dL Creatinine (0.4-1.0) mg/dL Estimated GFR (MDRD) (>89) Glucose (70-100) mg/dL Calcium (8.5-10.3) mg/dL Phosphorus (2.5-4.6) mg/dL Magnesium (1.7-2.8) mg/dL Iron (28-170) ug/dL TIBC (250-450) ug/dL Transferrin (192-382) mg/dL Ferritin (11.0-306.8) ng/mL Lactate Dehydrogenase (91-225) IU/L Troponin I High Sens 19.3 H* (2.3-14.8) pg/mL B-Natriuretic Peptide (5-100) pg/mL Vitamin B12 (180-914) pg/mL Nasal Screen MRSA (PCR) NEGATIVE (NEGATIVE) Salicylates < 6.0 mg/dL Urine Opiates Screen (NEGATIVE) Ur Oxycodone Screen (NEGATIVE) Urine Methadone Screen (NEGATIVE) Ur Propoxyphene Screen (NEGATIVE) Acetaminophen < 10 L (10-30) ug/mL Ur Barbiturates Screen (NEGATIVE) Ur Tricyclics Screen (NEGATIVE) Ur Phencyclidine Scrn (NEGATIVE) Ur Amphetamine Screen (NEGATIVE) U Methamphetamines Scrn (NEGATIVE) U Benzodiazepines Scrn (NEGATIVE) Urine Cocaine Screen (NEGATIVE) U Cannabinoids Screen (NEGATIVE) Ethyl Alcohol 9.4 mg/dL 05/09/19 Range/Units 07:25 WBC (4.8-10.8) x10^3/uL RBC (4.20-5.40) 10^6/uL Hgb (12.0-16.0) g/dL Hct (37.0-47.0) % MCV (81.0-99.0) fL MCH (27.0-31.0) pg MCHC (32.0-36.0) g/dL RDW (12.0-15.0) % Plt Count (130-450) 10^3/uL MPV (7.9-10.8) fL Reticulocyte % (Auto) (0.5-2.3) % Neut # (Auto) (1.5-6.6) 10^3/uL Lymph # (Auto) (1.5-3.5) 10^3/uL [place] # (Auto) (0.0-1.0) 10^3/uL Eos # (Auto) (0.0-0.7) 10^3/uL Baso # (Auto) (0.0-0.1) 10^3/uL Absolute Nucleated RBC x10^3/uL Nucleated RBC % /100WBC Absolute Retic (0.020-0.110) 10^6/uL Bld Gas Analysis Time Sample Site ABG pH (7.35-7.45) ABG pCO2 (34-45) mmHg ABG pO2 (80-100) mmHg ABG HCO3 (22.0-26.0) mmol/L ABG Total CO2 (21.0-29.0) MMOL/L ABG O2 Saturation (94-98) % ABG Base Excess (-2.0-3.0) mmol/L Kareem Test VBG pH (7.31-7.41) Ionized Calcium (1.15-1.33) mmol/L Respiration Rate b/min O2 Delivery Device Vent Mode FiO2 Tidal Volume mL PEEP cmH2O Pressure Support Vent cmH2O Sodium (135-145) mmol/L Potassium (3.5-5.0) mmol/L Chloride (101-111) mmol/L Carbon Dioxide (21-32) mmol/L Anion Gap (6-13) BUN (6-20) mg/dL Creatinine (0.4-1.0) mg/dL Estimated GFR (MDRD) (>89) Glucose (70-100) mg/dL Calcium (8.5-10.3) mg/dL Phosphorus (2.5-4.6) mg/dL Magnesium (1.7-2.8) mg/dL Iron (28-170) ug/dL TIBC (250-450) ug/dL Transferrin (192-382) mg/dL Ferritin (11.0-306.8) ng/mL Lactate Dehydrogenase (91-225) IU/L Troponin I High Sens (2.3-14.8) pg/mL B-Natriuretic Peptide (5-100) pg/mL Vitamin B12 (180-914) pg/mL Nasal Screen MRSA (PCR) (NEGATIVE) Salicylates mg/dL Urine Opiates Screen NEGATIVE (NEGATIVE) Ur Oxycodone Screen POSITIVE H (NEGATIVE) Urine Methadone Screen NEGATIVE (NEGATIVE) Ur Propoxyphene Screen NEGATIVE (NEGATIVE) Acetaminophen (10-30) ug/mL Ur Barbiturates Screen NEGATIVE (NEGATIVE) Ur Tricyclics Screen NEGATIVE (NEGATIVE) Ur Phencyclidine Scrn NEGATIVE (NEGATIVE) Ur Amphetamine Screen NEGATIVE (NEGATIVE) U Methamphetamines Scrn NEGATIVE (NEGATIVE) U Benzodiazepines Scrn NEGATIVE (NEGATIVE) Urine Cocaine Screen NEGATIVE (NEGATIVE) U Cannabinoids Screen NEGATIVE (NEGATIVE) Ethyl Alcohol mg/dL Assessment/Plan - Problem List (1) Aortic stenosis, severe Impression: seen this am and technical business analyst at the bedside. Severe stenosis seen on ECHO. explains the hypotension, CHF, hypoxia all in the face of a chronically malnourished female. Plan: discuss with family when they come in she will be very difficult to treat with her co-morbidities I have called Cardiology second shift supervisor for their recommendations. Should she be transferred? (2) Acute respiratory failure with hypoxia Impression: stable since yesterday with good TV and low Fi02. start weaning with parameters. Hopefully extubate today (3) Hypotension Impression: she already had sysolics to 78-100 in the outpt setting and then given 80 mg lasix, NTG paste. Still on 2 mcg of levophed. will try to wean off and goal MAP 65. Qualifiers: Hypotension type: hypotension due to drug Qualified Code(s): I95.2 - Hypotension due to drugs (4) Pulmonary edema Impression: from acute systolic heart failure due to valvular heart disease from severe aortic stenosis. Plan: will discuss with for recommendations. Qualifiers: Chronicity: acute Qualified Code(s): J81.0 - Acute pulmonary edema (5) Opacities of both lungs present on chest x-ray Impression: from chf not from pneumonia. (6) Protein-calorie malnutrition, moderate Impression: from lack of caloric intake and gastric bypass malapsorption. Nutrition consult. (7) Chronic prescription opiate use Impression: we will stop her fentanyl drip and transition to oral opiates but she has gastric bypass. I don't know how well her long acting pills will be absorbed. she may require a fentanyl patch. (9) Nutritional anemia Impression: Laboratory Tests 05/10/19 05/10/19 05/10/19 05:25 05:25 05:25 Reticulocyte % (Auto) 2.83 H Absolute Retic 0.092 Iron < 6 L TIBC 109 L Transferrin 78 L Ferritin 63.6 Lactate Dehydrogenase Vitamin B12 176 L 05/10/19 05:25 Reticulocyte % (Auto) Absolute Retic Iron TIBC Transferrin Ferritin Lactate Dehydrogenase 130 Vitamin B12 I have changed her IVF from NS to bannana bag with multivite. Will also calculate for iron infusion and give 1st dose today. Nutrition consult has been notifed.
--- NOTE | 2019-05-10 10:06 | XRAY Report ---
Reason: chf on ventilator Procedure Date: 05/10/2019 Accession Number: [id number] / [id number] Procedure: XR - Chest 1 View X-Ray CPT Code: 83413 FULL RESULT: EXAM: CHEST RADIOGRAPHY EXAM DATE: 05/10/2019 09:04 AM. CLINICAL HISTORY: Congestive heart failure, on ventilator. COMPARISON: CHEST FOR LINE PLACEMENT 05/09/2019 10:16 AM. TECHNIQUE: 1 view. FINDINGS: Lungs/Pleura: There are bilateral increased interstitial pulmonary markings, improved compared to prior, no large pleural effusion or pneumothorax. Linear densities in the right lung suggest some component of atelectasis. Mediastinum: Cardiomediastinal silhouette is stable, mild aortic arch calcifications. Other: Endotracheal tube terminates approximately 1.5 cm above the darrius. Enteric tube terminates below the inferior confines of the radiograph. Right IJ central line terminates near the superior cavoatrial junction. IMPRESSION: Improvement in pulmonary opacities. RADIA
[2019-05-10] MEDS: MULTIVITAMIN 10 ML, THIAMINE INJ 100 MG, FOLIC ACID INJ 1 MG in D5.45NS W/20 MEQ KCL 1,... IV SCH (11:25)
[2019-05-10] MEDS ORDERED: FERRIC GLUCONATE 125 MG in SODIUM CHLORIDE 0.9% 100ML 100 ML IV SCH (17:00)
[2019-05-10] MEDS ORDERED: SODIUM CHLORIDE INHALATION 3 ML NEB ONE (18:38)
[2019-05-10] MEDS ORDERED: SODIUM CHLORIDE 0.9% 250 ML IV ONE (22:52)
[2019-05-10] MEDS ORDERED: SODIUM CHLORIDE 0.9% 500 ML IV PRN (23:35)
[2019-05-11] MEDS ORDERED: SODIUM CHLORIDE 0.9% 250 ML IV ONE ×2 (00:19→00:42)
[2019-05-11] MEDS: SODIUM CHLORIDE FLUSH 0.9% 10 ML SYRINGE IVP SCH ×3 (01:38→17:05)
[2019-05-11] MEDS ORDERED: SODIUM CHLORIDE 0.9% 500 ML IV ONE (02:18)
[2019-05-11] MEDS: SODIUM CHLORIDE FLUSH 0.9% 10 ML SYRINGE IVP PRN ×4 (05:07→20:47)
[2019-05-11 05:59] LABS: BASOPHILS % (AUTO) 0.1 %; EOSINOPHILS # (AUTO) 0.1 10^3/uL (0.0-0.7); EOSINOPHILS % (AUTO) 1.7 %; HGB - HEMOGLOBIN 8.8 g/dL (12.0-16.0); LYMPHOCYTES # (AUTO) 0.8 10^3/uL (1.5-3.5); LYMPHOCYTES % (AUTO) 11.5 %; MEAN CORPUSCULAR HEMOGLOBIN 29.9 pg (27.0-31.0); MEAN CORPUSCULAR HGB CONC 32.6 g/dL (32.0-36.0); MEAN CORPUSCULAR VOLUME 91.8 fL (81.0-99.0); MEAN PLATELET VOLUME 11.2 fL (7.9-10.8); MONOCYTES # (AUTO) 0.5 10^3/uL (0.0-1.0); MONOCYTES % (AUTO) 6.9 %; NEUTROPHILS # (AUTO) 5.5 10^3/uL (1.5-6.6); NEUTROPHILS % (AUTO) 79.2 %; PLT - PLATELET COUNT 156 10^3/uL (130-450); RED BLOOD COUNT 2.94 10^6/uL (4.20-5.40); RED CELL DISTRIBUTION WIDTH 15.4 % (12.0-15.0); WHITE BLOOD COUNT 6.9 x10^3/uL (4.8-10.8)
[2019-05-11] MEDS: ENALAPRILAT 1.25 MG/ML VIAL IVP SCH (06:09)
[2019-05-11] MEDS: FUROSEMIDE 40 MG/4 ML VIAL IVP SCH (06:09)
[2019-05-11 06:11] LABS: CALCIUM 7.2 mg/dL (8.5-10.3); CREATININE 0.4 mg/dL (0.4-1.0); MAGNESIUM 1.7 mg/dL (1.7-2.8); PHOSPHORUS 1.7 mg/dL (2.5-4.6)
[2019-05-11] MEDS ORDERED: MAGNESIUM SULFATE 2 GRAM 2 GM/50 ML BAG IV ONE (06:14)
[2019-05-11] MEDS ORDERED: POTASSIUM PHOSPHATE 15 MMOL in SODIUM CHLORIDE 0.9% 250 ML IV ONE ×2 (08:00→09:00)
[2019-05-11] MEDS: HYDROcod/ACETAM 5/325 MG TABLET PO PRN ×2 (08:06→13:06)
[2019-05-11] MEDS: MULTIVITAMIN 10 ML, THIAMINE INJ 100 MG, FOLIC ACID INJ 1 MG in D5.45NS W/20 MEQ KCL 1,... IV SCH (08:09)
[2019-05-11] MEDS: HYDROmorphone 0.5 MG/0.5 ML SYRINGE IVP PRN ×2 (08:58→13:41)
--- NOTE | 2019-05-11 10:45 | PROVIDER PROGRESS NOTE ---
Assessment/Plan - Problem List (1) Acute respiratory failure with hypoxia Assessment/Plan: Hypoxia and resp distress has resolved, she is breathing R.A. and saturating. She arrived to the ER intubated, and was extubated yesterday. The Echo showed preserved LVEF, but Grade 1 LV diastolic dysfunction present, presumably from the severe aortic stenosis. IV Lasix will be stopped as she needed 4 saline boluses of 250 cc overnight due to low BP and oliguria. Remain in ICU today. (2) Acute diastolic heart failure due to valvular disease Assessment/Plan: Gentle diuresis is now planned. Low dose B-jules may be added if her low BP will tolerate this. (3) Aortic stenosis, severe Assessment/Plan: This was found on Echo done this admission. Her LVEF is preserved with Grade 1 diastolic dysfunction. The last Hospitalist reached out to regarding a TAVR and they advised that she can be evaluated as an outpatient, since she stabilized clinically, bit only if her malnutrition improves. The family was given this update yesterday and reviewed again today. She will need a referral to Cardiology by her PCP, this was explained to the family today. (4) Hypotension Qualifiers: Hypotension type: hypotension due to drug Qualified Code(s): I95.2 - Hypote nsion due to drugs Assessment/Plan: Her home meds of Lisinopril and Isordil have been put on hold and she needed a Levophed drip, while she was diuresing, due to hypotension. Levophed was stopped yesterday. Last night, she got small fluid boluses for low BP. Will stop iv Lasix but also no further saline iv hydration (since she is extubated and eating), but getting small amount of fluids with her banana bag at 85 cc/hr.. Will start Midodrine 2.5 mg tid with meals to help raise BP. (5) Protein-calorie malnutrition, moderate Assessment/Plan: This is partly from malabsorption after the gastric bypass surgery. He serum Albumen today is very low at 1.9. She is getting supplements in her banana bag and iv Iron qod. Dietary help appreciated. (6) Nutritional anemia Assessment/Plan: Related to poor absorption from complications after gastric bypass surgery. She is now ordered to get iv Iron qod, iv Thiamine and vitamins. (7) Hx of gastric bypass Assessment/Plan: There was never any GI follow-up after the surgery approx. 10 years ago. The sister, SALO, who manages her nutrition, reports that many foods make her get dry heaves and then she no longer eats that day and other foods cause a dumping syndrome and she no longer eats after that as well. She therefore has marked protein caloroe malnutrition as well as vitamin and mineral deficiencies related to the portion of bowel that had bypass. She will need outpatient management with Gastroenterology. (8) Perseveration of speech Assessment/Plan: The family is at bedside and reports that this is nott her usual speech pattern. It likely is residual of narcotics used for pain and the sedatives while she was on the ventilator. Will continue to monitor speech and motor function +while in ICU. (9) Chronic pain Qualifiers: Chronic pain type: other chronic pain Qualified Code(s): G89.29 - Other chronic pain Assessment/Plan: Fibromyalgia is documented in the ER record. The sister also describes that she has knee arthritis. Will resume the Lyrica, as the patient requested. Low doses of pain meds are ordered to use prn. (10) Functional paraparesis Assessment/Plan: There are 3 sisters and a [id number] in the room, the SLAO sister reports that she has been functionally a paraplegic for about 10 years. There is a Jayleen lift in the home, several wheelchairs, hospital tables. She lives with the sister who is the D POA who has been caring for her for about approximately 8 years, knows how to manage pressure sores and tries to do physical therapy with her or at least get her into a wheelchair with a Jayleen lift daily, which the patient occasionally declines due to pain. I offered a (re)evaluation with Home Health PT and the SALO agreed. (11) Chronic prescription opiate use Assessment/Plan: There is a CONTROLLED SUBSTANCE AGREEMENT on file here. (12) Depression Assessment/Plan: She was extubated yesterday afternoon, and today was awake and tearful, asking for her anti-depressants. Will resume her home antidepressants. - Current Meds Current Meds: Current Medications Generic Name Dose Route Start Last Admin Trade Name Freq PRN Reason Stop Dose Admin Hydrocodone Bitart/Acetaminophen 1 tab 05/11/19 06:54 05/11/19 08:06 Culver 5/325 PO 1 tab Q4HR PRN Administration PAIN Heparin Sodium (Beef Lung) 30 - 50 unit 05/10/19 23:35 05/11/19 05:08 IVP 50 unit PRN PRN Administration Central Line Protocol (<24 hr) Hydromorphone HCl 0.5 mg 05/09/19 08:24 05/11/19 08:58 Dilaudid Inj Syringe IVP 0.5 mg Q2H PRN Administration Pain 8 to 10 Multivitamins 10 ml/ Thiamine 1,011.2 mls @ 85 mls/hr 05/10/19 10:00 05/11/19 10:09 HCl 100 mg/ Folic Acid 1 mg/ IV 85 mls/hr Potassium Chloride/Dextrose/ DAILY DAQUAN Infusion Sod Cl Ferric Sodium Gluconate 110 mls @ 100 mls/hr 05/10/19 17:00 05/10/19 17:30 Complex 125 mg/ Sodium IV 05/26/19 18:05 Infused Chloride MoWeFr DAQUAN Infusion Sodium Chloride 500 mls @ 0 mls/hr 05/10/19 23:35 05/11/19 09:10 Normal Saline 0.9% IV 0 mls/hr Q24H PRN Infusion TKO RATE TKO Potassium Phosphate 15 mmol/ 255 mls @ 63 mls/hr 05/11/19 09:00 05/11/19 10:10 Sodium Chloride IV 05/11/19 13:02 63 mls/hr ONCE ONE Infusion Protocol Sodium Chloride 10 ml 05/09/19 09:00 05/11/19 08:59 Normal Saline Flush 0.9% IVP 20 ml 0100,0900,1700 DAQUAN Administration Sodium Chloride 10 ml 05/09/19 08:24 05/11/19 05:07 Normal Saline Flush 0.9% IVP 20 ml PRN PRN Administration NEEDED PER PROVIDER ORDERS - Lab Result Fish Bone Diagrams: 05/11/19 05:10 05/11/19 05:10 - Additional Planning My Orders: My Active Orders 05/11/19 10:00 Aspirin EC [Ecotrin] 81 mg PO DAILY DULoxetine [Cymbalta] 60 mg PO DAILY Levothyroxine [Synthroid] 50 mcg PO DAILY Pregabalin [Lyrica] 200 mg PO BID buPROPion [Wellbutrin Xl] 150 mg PO DAILY 05/11/19 12:00 Midodrine 2.5 mg PO TIDWM 05/11/19 Lunch Soft (Low Fiber) Diet [DIET] Subjective - Subjective Patient Reports: Feeling Better Nursing Reports: Other (Crying, wants her Lyrica and psych meds. Complains of pain when knees, shins or feet are touched.) Objective Vital Signs: Vital Signs - 24 hr 05/10/19 05/10/19 05/10/19 10:55 11:00 11:11 Temperature 37.6 C H Heart Rate [ 79 Monitoring electrodes] Respiratory 12 Rate Blood Pressure 82/55 L 81/54 L 79/48 L [Left Brachial artery] Blood Pressure [Right Brachial artery] O2 Saturation 99 05/10/19 05/10/19 05/10/19 12:00 12:30 13:00 Temperature 37.9 C H 37.6 C H Heart Rate [ 85 84 Monitoring electrodes] Respiratory 12 13 Rate Blood Pressure 101/73 111/58 L [Left Brachial artery] Blood Pressure 101/73 [Right Brachial artery] O2 Saturation 100 99 05/10/19 05/10/19 05/10/19 13:43 14:00 14:22 Temperature 37.6 C H 37.5 C Heart Rate [ 86 89 Monitoring electrodes] Respiratory 17 17 Rate Blood Pressure [Left Brachial artery] Blood Pressure 116/61 105/66 88/63 L [Right Brachial artery] O2 Saturation 94 96 05/10/19 05/10/19 05/10/19 15:00 16:00 16:29 Temperature 37.3 C 37.3 C Heart Rate [ 92 84 Monitoring electrodes] Respiratory 18 14 Rate Blood Pressure [Left Brachial artery] Blood Pressure 90/62 86/56 L 95/58 L [Right Brachial artery] O2 Saturation 97 100 05/10/19 05/10/19 05/10/19 17:00 18:00 19:00 Temperature 37.2 C 37.2 C 37.2 C Heart Rate [ 81 76 82 Monitoring electrodes] Respiratory 20 16 18 Rate Blood Pressure [Left Brachial artery] Blood Pressure 87/52 L 90/56 L 96/56 L [Right Brachial artery] O2 Saturation 100 100 100 05/10/19 05/10/19 05/10/19 20:09 21:00 21:25 Temperature 37.3 C 37.1 C Heart Rate [ 76 79 78 Monitoring electrodes] Respiratory 15 16 12 Rate Blood Pressure [Left Brachial artery] Blood Pressure 96/55 L 74/45 L 86/51 L [Right Brachial artery] O2 Saturation 99 100 96 05/10/19 05/10/19 05/11/19 22:05 23:00 00:00 Temperature 37.5 C 37.0 C Heart Rate [ 78 74 76 Monitoring electrodes] Respiratory 22 16 16 Rate Blood Pressure [Left Brachial artery] Blood Pressure 80/48 L 93/52 L 89/47 L [Right Brachial artery] O2 Saturation 94 96 98 05/11/19 05/11/19 05/11/19 01:00 02:00 03:00 Temperature 36.9 C Heart Rate [ 75 76 78 Monitoring electrodes] Respiratory 16 12 11 L Rate Blood Pressure [Left Brachial artery] Blood Pressure 83/47 L 90/57 L 87/48 L [Right Brachial artery] O2 Saturation 93 95 95 05/11/19 05/11/19 05/11/19 04:00 05:00 06:08 Temperature 36.8 C Heart Rate [ 82 80 93 Monitoring electrodes] Respiratory 18 15 14 Rate Blood Pressure [Left Brachial artery] Blood Pressure 90/49 L 97/51 L 111/61 [Right Brachial artery] O2 Saturation 95 95 92 05/11/19 05/11/19 05/11/19 07:00 08:00 09:00 Temperature 36.6 C Heart Rate [ 80 84 85 Monitoring electrodes] Respiratory 12 14 12 Rate Blood Pressure [Left Brachial artery] Blood Pressure 88/55 L 115/59 L 109/95 H [Right Brachial artery] O2 Saturation 95 96 97 05/11/19 10:00 Temperature Heart Rate [ 84 Monitoring electrodes] Respiratory 19 Rate Blood Pressure [Left Brachial artery] Blood Pressure [Right Brachial artery] O2 Saturation 96 Oxygen O2 Source Room air I&O (Last 24 Hrs): Intake and Output Totals x24h 05/09/19 05/10/19 05/11/19 23:59 23:59 23:59 Intake Total 2952.927 5268.551 1382.017 Output Total 2210 7379 215 Balance 008.325 4928.551 1167.017 General: Alert, Other (She appears to be oriented but she repeats her sentences and speeks slowly. Very pale. Has temporal wasting.) HEENT: Mucous membr. moist/pink, Other (Edentulous.) Neck: Supple, No JVD Neuro: Alert, Speech Slurred, Other (Feet are dorsiflexed and have no strength.) Cardiovascular: Regular rate, Other (3/6 systolic murmur) Respiratory: No respiratory distress, Breath sounds nml Abdomen: Soft Extremities: No edema - Results Results: Laboratory Results WBC 6.9 x10^3/uL (4.8-10.8) 05/11/19 05:10 RBC 2.94 10^6/uL (4.20-5.40) L 05/11/19 05:10 Hgb 8.8 g/dL (12.0-16.0) L 05/11/19 05:10 Hct 27.0 % (37.0-47.0) L 05/11/19 05:10 MCV 91.8 fL (81.0-99.0) 05/11/19 05:10 MCH 29.9 pg (27.0-31.0) 05/11/19 05:10 MCHC 32.6 g/dL (32.0-36.0) 05/11/19 05:10 RDW 15.4 % (12.0-15.0) H 05/11/19 05:10 Plt Count 156 10^3/uL (130-450) 05/11/19 05:10 MPV 11.2 fL (7.9-10.8) H 05/11/19 05:10 Reticulocyte % (Auto) 2.83 % (0.5-2.3) H 05/10/19 05:25 Neut # (Auto) 5.5 10^3/uL (1.5-6.6) 05/11/19 05:10 Lymph # (Auto) 0.8 10^3/uL (1.5-3.5) L 05/11/19 05:10 [place] # (Auto) 0.5 10^3/uL (0.0-1.0) 05/11/19 05:10 Eos # (Auto) 0.1 10^3/uL (0.0-0.7) 05/11/19 05:10 Baso # (Auto) 0.0 10^3/uL (0.0-0.1) 05/11/19 05:10 Absolute Nucleated RBC 0.00 x10^3/uL 05/11/19 05:10 Nucleated RBC % 0.0 /100WBC 05/11/19 05:10 Absolute Retic 0.092 10^6/uL (0.020-0.110) 05/10/19 05:25 PT 13.0 secs (9.9-12.6) H 05/09/19 07:05 INR 1.1 (0.8-1.2) 05/09/19 07:05 APTT 40.3 secs (24.9-33.3) H 05/09/19 07:05 Bld Gas Analysis Time 0538 05/10/19 05:12 Sample Site RIGHT RADIAL 05/10/19 05:12 ABG pH 7.39 (7.35-7.45) 05/10/19 05:12 ABG pCO2 36 mmHg (34-45) 05/10/19 05:12 ABG pO2 93 mmHg (80-100) 05/10/19 05:12 ABG HCO3 21.2 mmol/L (22.0-26.0) L 05/10/19 05:12 ABG Total CO2 22.3 MMOL/L (21.0-29.0) 05/10/19 05:12 ABG O2 Saturation 97 % (94-98) 05/10/19 05:12 ABG Base Excess -3.4 mmol/L (-2.0-3.0) L 05/10/19 05:12 Kareem Test POSITIVE 05/10/19 05:12 VBG pH 7.366 (7.31-7.41) 05/10/19 07:35 Ionized Calcium 1.01 mmol/L (1.15-1.33) L 05/10/19 07:35 Respiration Rate 12 b/min 05/10/19 05:12 O2 Delivery Device VENTILATOR 05/10/19 05:12 Vent Mode SIMV 05/10/19 05:12 FiO2 24.00 05/10/19 05:12 Tidal Volume 450 mL 05/10/19 05:12 PEEP 5 cmH2O 05/10/19 05:12 Pressure Support Vent 10 cmH2O 05/10/19 05:12 Sodium 140 mmol/L (135-145) 05/11/19 05:10 Potassium 3.7 mmol/L (3.5-5.0) 05/11/19 05:10 Chloride 112 mmol/L (101-111) H 05/11/19 05:10 Carbon Dioxide 24 mmol/L (21-32) 05/11/19 05:10 Anion Gap 4.0 (6-13) L 05/11/19 05:10 BUN 6 mg/dL (6-20) 05/11/19 05:10 Creatinine 0.4 mg/dL (0.4-1.0) 05/11/19 05:10 Estimated GFR (MDRD) 159 (>89) 05/11/19 05:10 Glucose 76 mg/dL (70-100) 05/11/19 05:10 Lactic Acid 1.8 mmol/L (0.5-2.2) 05/09/19 07:05 Calcium 7.2 mg/dL (8.5-10.3) L 05/11/19 05:10 Phosphorus 1.7 mg/dL (2.5-4.6) L 05/11/19 05:10 Magnesium 1.7 mg/dL (1.7-2.8) 05/11/19 05:10 Iron < 6 ug/dL (28-170) L 05/10/19 05:25 TIBC 109 ug/dL (250-450) L 05/10/19 05:25 Transferrin 78 mg/dL (192-382) L 05/10/19 05:25 Ferritin 63.6 ng/mL (11.0-306.8) 05/10/19 05:25 Total Bilirubin 0.6 mg/dL (0.2-1.0) 05/09/19 07:05 AST 19 IU/L (10-42) 05/09/19 07:05 ALT 11 IU/L (10-60) 05/09/19 07:05 Alkaline Phosphatase 123 IU/L (42-121) H 05/09/19 07:05 Lactate Dehydrogenase 130 IU/L (91-225) 05/10/19 05:25 Troponin I High Sens 19.3 pg/mL (2.3-14.8) H* 05/09/19 12:15 B-Natriuretic Peptide 858 pg/mL (5-100) H 05/11/19 05:10 Total Protein 5.7 g/dL (6.7-8.2) L 05/09/19 07:05 Albumin 1.9 g/dL (3.2-5.5) L 05/11/19 05:25 Globulin 3.3 g/dL (2.1-4.2) 05/09/19 07:05 Albumin/Globulin Ratio 0.7 (1.0-2.2) L 05/09/19 07:05 Lipase 14 U/L (22-51) L 05/09/19 07:05 Vitamin B12 176 pg/mL (180-914) L 05/10/19 05:25 25-OH Vitamin D Total 40 ng/mL (30-100) 05/10/19 05:25 Urine Color YELLOW 05/09/19 07:25 Urine Clarity CLEAR (CLEAR) 05/09/19 07:25 Urine pH 5.5 PH (5.0-7.5) 05/09/19 07:25 Ur Specific [place] 1.010 (1.002-1.030) 05/09/19 07:25 Urine Protein NEGATIVE mg/dL (NEGATIVE) 05/09/19 07:25 Urine Glucose (UA) NEGATIVE mg/dL (NEGATIVE) 05/09/19 07:25 Urine Ketones NEGATIVE mg/dL (NEGATIVE) 05/09/19 07:25 Urine Occult Blood NEGATIVE (NEGATIVE) 05/09/19 07:25 Urine Nitrite NEGATIVE (NEGATIVE) 05/09/19 07:25 Urine Bilirubin NEGATIVE (NEGATIVE) 05/09/19 07:25 Urine Urobilinogen 0.2 (NORMAL) E.U./dL (NORMAL) 05/09/19 07:25 Ur Leukocyte Esterase NEGATIVE (NEGATIVE) 05/09/19 07:25 Ur Microscopic Review NOT INDICATED 05/09/19 07:25 Urine Culture Comments NOT INDICATED 05/09/19 07:25 Nasal Screen MRSA (PCR) NEGATIVE (NEGATIVE) 05/09/19 11:20 Salicylates < 6.0 mg/dL 05/09/19 09:40 Urine Opiates Screen NEGATIVE (NEGATIVE) 05/09/19 07:25 Ur Oxycodone Screen POSITIVE (NEGATIVE) H 05/09/19 07:25 Urine Methadone Screen NEGATIVE (NEGATIVE) 05/09/19 07:25 Ur Propoxyphene Screen NEGATIVE (NEGATIVE) 05/09/19 07:25 Acetaminophen < 10 ug/mL (10-30) L 05/09/19 09:40 Ur Barbiturates Screen NEGATIVE (NEGATIVE) 05/09/19 07:25 Ur Tricyclics Screen NEGATIVE (NEGATIVE) 05/09/19 07:25 Ur Phencyclidine Scrn NEGATIVE (NEGATIVE) 05/09/19 07:25 Ur Amphetamine Screen NEGATIVE (NEGATIVE) 05/09/19 07:25 U Methamphetamines Scrn NEGATIVE (NEGATIVE) 05/09/19 07:25 U Benzodiazepines Scrn NEGATIVE (NEGATIVE) 05/09/19 07:25 Urine Cocaine Screen NEGATIVE (NEGATIVE) 05/09/19 07:25 U Cannabinoids Screen NEGATIVE (NEGATIVE) 05/09/19 07:25 Ethyl Alcohol 9.4 mg/dL 05/09/19 09:40
[2019-05-11] MEDS: LEVOTHYROXINE 25 MCG TABLET PO SCH (11:14)
[2019-05-11] MEDS: PREGABALIN 100 MG CAPSULE PO SCH ×2 (11:15→21:44)
[2019-05-11] MEDS: ASPIRIN EC 81 MG TABLET PO SCH (11:17)
[2019-05-11] MEDS: DULoxetine 30 MG CAPSULE PO SCH (11:17)
[2019-05-11] MEDS: buPROPion XL 150 MG TABLET PO SCH (11:17)
[2019-05-11] MEDS: MIDODRINE 2.5 MG TABLET PO SCH ×2 (13:06→17:32)
--- NOTE | 2019-05-11 14:36 | ADVANCE CARE PLANNING NOTE ---
Advance Care Planning - Planning Encounter Date: 05/11/19 Time: 12:00 Purpose: To review her diagnoses, the plan and her and family wishes regarding medical management. Parties in Attendance: The patient was in bed, and 3 of her sisters and a [id number]-tyl and I spoke at bedside. The sister with whom she lives, is the DPOA. Decisional Capacity of the Patient: The DPOA describes that the patient's wishes are usually followed. Today, however, she seems to still be somewhat under the affects of the sedatives used yesterday, since she is perseverating and slurring her words. - Diagnosis for Encounter (1) Aortic stenosis, severe Summary: Evaluation for TAVR at could be done as an outpatient. (2) Protein-calorie malnutrition, moderate Summary: She is emaciated and needs nutritional improvement. (3) Functional paraparesis Summary: She has had 10 years of being a functional paraplegic. - Encounter Subjective/Patient's Story: Patient underwent gastric bypass surgery 10 years ago at [facility] then moved to [place] and then moved back to [place]. When her sister saw her after the bypass surgery she was shocked to find her "nearly a skeleton". At this point she required complete half-way care for about 3 years and after that has been living with the DPOA sister who is her caregiver. They have a Jayelen lift, 2 wheelchairs, several hospital tables, they had Home Health nursing for several visits, and one visit from physical therapy who advised that the patient "stand up and pull on a large rubber band" for toning, which was unrealistic since the patient could no longer stand. The DPOA/caregiver, is able to raise her with a Jayleen lift into a wheelchair where she can sit for several hours maximum, then develops pain and is also fatigued and requests to go back to bed. The caregiver admits that the patient spends most of her day in bed watching TV. The patient gets dry heaves after certain foods, and dumping syndrome after other foods and overall she has "no appetite". The sister caregiver tries to give her some nutrition with Pepsi and other nutrients. There has never been a gastroenterology management for any vitamin supplements following gastric bypass surgery. The patient has reently established with a new PCP, Dr. Duarte, and seen for 2 visits. This is the first diagnosis of cardiac (valvular) disease for this patient. The patient and all her sisters would like everything tried to keep her alive. Objective/Medical Story: Patient was admitted and marked respiratory distress, required intubation en route by the ambulance. Her work-up has shown that she has diastolic LV dysfunction and severe aortic stenosis. Her past history includes gastric bypass surgery and subsequent marked malnutrition and emaciation as well as a history of fibromyalgia, chronic pain, arthritis which has made her weak and functional paraplegic for the last 10 years. Goals of Care: The patient wants to be evaluated for valve intervention. The sister's want her to be evaluated. The DPOA, who is the caregiver, have equipment and 8 years of experience with managing her function. She needs improved nutrition, but a PEG tube cannot be inserted with a small stomach, that was created with the gastric bypass (per our surgeon, Dr Nolan Strickland). She will need outpatient eval and management by Gastroenterology. Plan: Discharge to home, not a SNF or [facility], as the caregiver has all equipment needed. Outpatient evaluation and management by GI service and then by Cardiology at for TAVR. For this reason, she is not a candidate for Palliative Care yet. Code Status: Attempt Resuscitation Time spent on advance care plannin min
[2019-05-11] MEDS ORDERED: MINERAL OIL/PETROLAT OPHTH OINT EACHEYE PRN (17:36)
[2019-05-11] MEDS ORDERED: MIN OIL/DIMETHICON/COCONUT OIL 92 GM TUBE TOP PRN (17:36)
[2019-05-12] MEDS: SODIUM CHLORIDE FLUSH 0.9% 10 ML SYRINGE IVP SCH ×2 (02:28→10:04)
[2019-05-12 06:29] LABS: BASOPHILS % (AUTO) 0.4 %; EOSINOPHILS # (AUTO) 0.2 10^3/uL (0.0-0.7); HGB - HEMOGLOBIN 8.3 g/dL (12.0-16.0); LYMPHOCYTES % (AUTO) 21.2 %; MEAN CORPUSCULAR HEMOGLOBIN 29.5 pg (27.0-31.0); MEAN CORPUSCULAR HGB CONC 32.3 g/dL (32.0-36.0); MEAN CORPUSCULAR VOLUME 91.5 fL (81.0-99.0); MEAN PLATELET VOLUME 11.1 fL (7.9-10.8); MONOCYTES # (AUTO) 0.4 10^3/uL (0.0-1.0); NEUTROPHILS # (AUTO) 3.2 10^3/uL (1.5-6.6); PLT - PLATELET COUNT 167 10^3/uL (130-450); RED BLOOD COUNT 2.81 10^6/uL (4.20-5.40); RED CELL DISTRIBUTION WIDTH 15.2 % (12.0-15.0); WHITE BLOOD COUNT 4.8 x10^3/uL (4.8-10.8)
[2019-05-12 06:40] LABS: CALCIUM 7.4 mg/dL (8.5-10.3); CREATININE 0.3 mg/dL (0.4-1.0)
--- NOTE | 2019-05-12 08:15 | Discharge Plan ---
Discharge Plan Problem Reviewed?: Yes Disposition: Home, Self Care Condition: Stable Prescriptions: Midodrine 2.5 mg PO TIDWM #90 tablet Multivit with Iron,Minerals [Spectravite Senior] 1 each PO DAILY #30 tablet Vitamin B Complex/Folic Acid [B-Complex Tablet] 0.4 mg PO DAILY #30 tablet Diet: Soft Activity Restrictions: Activity as Tolerated Shower Restrictions: No Assistance Devices: Wheelchair Weight Bearing: No Weight Instruction Topics: Midodrine tablets, Aortic Stenosis Tx Ch, TAVR Health Concerns: Admitted with fluid in lungs from a stiff heart caused by severe aortic stenosis (valve disease). Very low blood pressure and severe malnutrition were also found. Plan of Treatment: Medications adjusted for the above problems: stop the Lisinopril and Amlodipine. Start Midodrine tablets: take 3 times a day (upon awakening, mid-day and around dinnertime). Start vitamin supplements orally, but these may need to be adjusted by PCP or the GI specialist. Promote protein and calorie-rich food intake. The Internal Audit Director provided advice. Gastroenterology and Cardiology further management are needed. A referral for Home Health vists was submitted, for a nurse, bath aide and Physical Therapist and Occupational Therapist. Care Goals: Improve strength and overall functioning, prevent fluid build-up. Assessment: The patient and family agree with the plan. Additional Instructions or Follow Up instructions: See PCP in 5-10 days for hospital follow-up, medication adjustments, referral to a Territory Sales Consultant and a Metallurgical Specialist. No Smoking: If you smoke, Please STOP! Call for help. Follow-up with: Alfonso Duarte MD [Primary Care Provider] -
[2019-05-12] MEDS: LEVOTHYROXINE 25 MCG TABLET PO SCH (10:01)
[2019-05-12] MEDS: DULoxetine 30 MG CAPSULE PO SCH (10:02)
[2019-05-12] MEDS: ASPIRIN EC 81 MG TABLET PO SCH (10:02)
[2019-05-12] MEDS: PREGABALIN 100 MG CAPSULE PO SCH (10:02)
[2019-05-12] MEDS: buPROPion XL 150 MG TABLET PO SCH (10:02)
[2019-05-12] MEDS: MIDODRINE 2.5 MG TABLET PO SCH ×2 (10:03→12:15)
[2019-05-12] MEDS: MULTIVITAMIN 10 ML, THIAMINE INJ 100 MG, FOLIC ACID INJ 1 MG in D5.45NS W/20 MEQ KCL 1,... IV SCH (10:11)
[2019-05-12] MEDS: HYDROcod/ACETAM 5/325 MG TABLET PO PRN (12:19)
[2019-05-12 13:06] VITALS: BP 98/60
--- NOTE | 2019-05-17 17:00 | DISCHARGE SUMMARY ---
Discharge Summary Admit Date: 05/09/19 Discharge Date: 05/12/19 Discharging Provider: Dr Summer Lugo Primary Care Provider: Dr Jose Roberto Duarte Code Status: Attempt Resuscitation Condition at Discharge: Serious Discharge Disposition: 01 Home, Self Care - DIAGNOSES Admission Diagnoses: (1) Acute respiratory failure with hypoxia (2) Hypotension (3) Flash pulmonary edema (4) Opacities of both lungs present on chest x-ray (5) Protein-calorie malnutrition, moderate (6) Chronic prescription opiate use (7) Prolonged QT interval Discharge Diagnoses with Status of Each Condition: See below - HPI History of Present Illness: From the admission H&P of Dr Jeanne Olmos: She is a emaciated and cachectic female who suffered complications after gastric bypass surgery and this included possible strokes as well as foot drop. It is unclear if her history of "strokes" is associated with gastric bypass or a stand alone event or associated with pituitary surgery. This has left her wheelchair- bound and basically bedbound. She requires 24/7 care. She has a care provider. They use a Jayleen lift to move her. She is followed by local primary care office and is also receiving care for chronic pain management through [facility] pain clinic. In February of this year her EKG was identified as having a prolonged QT s yndrome and her Methadone was stopped and she was trialed for cycled short acting opiates. She does not do well with morphine, fentanyl, and as such was put on Oxycodone in the form of Percocet. By her April office visit with her primary care provider she was having increasing symptoms of depression. She was having insomnia, mood swings, not enjoying her life with the change to Percocet. She was started on Bupropion and Trazadone. Last night she began having shortness of breath. By this morning it was much worse. EMS was called and EMS reports that she had rales on initial examinatio n. In the back of the ambulance she started to tire with her breathing and they had to rod puller and coiler to the side of the road and intubate her. She was given Etomidate, Succinyl choline, Lasix, and Nitroglycerin. (In her office chart she has an allergy to nitroglycerin but is not clear what that is). She arrived to the emergency room unable to give a history, intubated. 80 mg of Lasix was given by EMS. The ER provider found to have a temperature of 37.1, heart rate of 87, respiration 14 on the vent. Blood pressure 141/81, and 100% saturated on the vent. She had rales bilaterally, 1+ bilateral edema, and sedated. Chest x-ray showed an in place endotracheal tube, asymmetric bilateral patchy airspace disease concerning for aspiration or pneumonia, with superimposed pulmonary edema and small bilateral effusions. Those bilateral effusions were seen on her previous CT of abdomen done for abdominal pain January 2018. Since being in the emergency room, the patient consistently dropped her pr essures further and further. Her blood pressure dropped to 45/35 in the emergency room prior to admission to the ICU. They put in a central line. Her initial troponin was 10.1. EKG shows sinus rhythm, PACs, short NJ, QT is 580, but no acute ST-T wave changes. - HOSPITAL COURSE Hospital Course: (1) Acute respiratory failure with hypoxia She was stabilized on the ventilator and had gentle iv sedation. She was diureses and the XRay showed no underlying pneumonia. She was able to be extubated on the 2nd hospital day. She had slow but steady improvement in mentation after the sedatives wore off. The hypoxia and respiratory distress resolved, and she was breathing room air with good saturations the rest of the hospitalization. An Echo was done that showed preserved LVEF, but LV diastolic dysfunction present, presumably from the severe aortic stenosis (see below). IV Lasix was stopped and she needed small saline boluses of 250 cc each, due to low BP and oliguria. Eventually, Midodrine was started for hypotension management. Since she required no PT evaluation for ambulation, she was discharged home, with the caregiver, sister, who had DME for managing the patient's ADLs. (2) Acute diastolic heart failure due to valvular disease She had gentle diuresis, due to chronic low BPs, but she did need some rehydration (as above). (3) Aortic stenosis, severe This was found on Echo done this admission. Her LVEF is preserved with diastolic dysfunction present and severe aortic stenosis. The Hospitalist reached out to regarding a TAVR and they advised that she can be evaluated as an outpatient, since she stabilized clinically, but only if her malnutrition improves. The family was given this information and reviewed again when the patient could participate. She and the sisters wanted to proceed with better nutrition and muscle strengthening to be able to get a referral to Cardiology by her PCP. (4) Hypotension She had BPs of 70-80/50-60. Her home meds of Lisinopril and Isordil were put on hold and she needed a Levophed drip in the ICU, while she was diuresing, due to hypotension. She needed small fluid boluses later, and eventually was put on Midodrine 2.5 mg tid with meals, to help raise BP to 90-110 systolic, and the Lisinopril and Isordil were completely stopped. (5) Protein-calorie malnutrition, moderate Her BMI is 20. She has temporal wasting and sunken orbits. This was partly from malabsorption after the gastric bypass surgery and also dumping syndrome and dry heave complaints which have made her nearly anorexic. She had a serum Albumen of 1.9 She got vitamin supplements in her iv banana bag and iv Iron several doses. Her diet needed to be soft. Dietary saw the patient and caregiver sister, and advised them on diet. (6) Nutritional anemia Her Hgb was 11 at admission and dropped to 8.3 at the time of discharge. She had low B12 levels and low Iron stores. This was also felt to be related to poor absorption from sequelae of the gastric bypass surgery. She got several doses of iv Iron and iv Thiamine and was discharged on oral vitamins and supplements. (7) Hx of gastric bypass There was never any GI follow-up after the surgery which was done about 10 years ago. She would benefit from outpatient management and follow-up with a Auricular Detoxification Specialist (or someone with experience in post-gastric bypass management), since she and the sisters want her to have a chance at seeing a Rib Chopper for a TAVR. (8) Chronic pain Fibromyalgia is documented in the EMR record. The sister also describes that she has knee arthritis. Her Lyrica was resumed, and she got low doses of pain meds prn. (9) Functional paraparesis The DPOA sister reports that she has been functionally a paraplegic for about 8- 10 years. There is a Jayleen lift in the home, several wheelchairs, and hospital tables. She lives with the sister who is the DPOA who has been caring for her for about approximately 8 years, and knows how to manage pressure sores and trie s to do physical therapy with her or at least get her into a wheelchair with a Jayleen lift daily, which the patient occasionally declines due to pain. I offered to order Home Health RN and PT and OT, and the patient and DPOA are interested. Home Health was ordered. (10) Chronic prescription opiate use There is a CONTROLLED SUBSTANCE AGREEMENT on file here. She got very little narcotics, due to chronic low BP. (11) Depression After she was extubated and when awake, she was tearful, asking for her anti- depressants. Her home antidepressants were restarted. - ALLERGIES Allergies/Adverse Reactions: Allergies Allergy/AdvReac Type Severity Reaction Status Date / Time latex Allergy Rash Verified 05/12/19 22:56 Penicillins Allergy Rash Verified 05/12/19 22:56 fentanyl AdvReac Anxiety Verified 05/12/19 22:56 - MEDICATIONS Home Medications: Ambulatory Orders Medication Instructions Recorded Confirmed Aspirin [Aspirin EC] 81 mg PO DAILY 01/21/17 05/13/19 Duloxetine HCl 60 mg PO DAILY 01/21/17 05/13/19 Levothyroxine [Synthroid] 50 mcg PO DAILY 01/21/17 05/13/19 Omeprazole [PriLOSEC] 20 mg PO DAILY 01/21/17 05/13/19 Pregabalin [Lyrica] 200 mg PO BID 01/21/17 05/13/19 Bupropion HCl [Bupropion Xl] 150 mg PO DAILY 05/10/19 05/13/19 Meloxicam 7.5 mg PO BID 05/10/19 05/13/19 Oxycodone HCl/Acetaminophen 1 tab PO Q4H 05/10/19 05/13/19 [Oxycodone-Acetaminophen 10-325] Midodrine 2.5 mg PO TIDWM #90 tablet 05/12/19 05/13/19 Multivit with Iron,Minerals 1 each PO DAILY #30 tablet 05/12/19 05/13/19 [Spectravite Senior] Vitamin B Complex/Folic Acid 0.4 mg PO DAILY #30 tablet 05/12/19 05/13/19 [B-Complex Tablet] Carvedilol [Coreg] 3.125 mg PO DAILY #30 tablet 05/14/19 Furosemide [Lasix] 20 mg PO BIDDIURETIC #60 tablet 05/14/19 Morphine Sulfate [Morphine Sulf 5 mg PO Q1H PRN #30 ml 05/14/19 Oral (Roxanol)] Potassium &Magnesium Aspartate [Ra 1 each PO DAILY #30 capsule 05/14/19 Potassium-Magnesium Asp 250] - PHYSICAL EXAM AT DISCHARGE General Appearance: positive: No acute distress, Other (Cachectic, pale) Eyes Bilateral: positive: Other (Sunken orbits) ENT: positive: No signs of dehydration, Other (Edentulous, has full dentures) Neck: positive: Nml inspection Respiratory: positive: No respiratory distress, Breath sounds nml Cardiovascular: positive: Regular rate & rhythm, Systolic murmur Peripheral Pulses: positive: 1+ Abdomen: positive: Non-tender, No organomegaly, Other (thin and scaphoid) Skin: positive: Pallor Extremities: positive: No pedal edema Neurologic/Psychiatric: positive: Oriented x3, Other (Resting tremor of the hands, chronic plantar flexion of the feet, 4/5 strength of arms, 1/5 strength of the legs) - LABS Result Diagrams: 05/12/19 05:00 05/12/19 05:00 - DIAGNOSTIC IMAGING Diagnostic Imaging Results: Final report reviewed - FOLLOW UP Follow Up: See PCP in 5-7 days for hospital follow-up, med adjustments, referral to a [facility] Detoxification Specialist (specialist of post-gastric bypass patients), and eventual referral to Cardiology for evaluation for a TAVR. - TIME SPENT Time Spent in Discharge (Minutes): 45
== END 2019-05-12 13:30 | disposition home health service (06) | DRG 208 ==
LOC: EDUNIT# → ED 06:45 → ICU 08:24 → MS2 05-11 21:02
PROVIDERS: ADMIT Specialist; ATTEND Internal Medicine
PROC: 5A1945Z Respiratory Ventilation, 24-96 Consecutive Hours (ICD-10-PCS; principal; 2019-05-09)
PROC: 02HV33Z Insertion of Infusion Device into Superior Vena Cava, Percutaneous Approach (ICD-10-PCS; 2019-05-09)
DX: J96.01 Acute respiratory failure with hypoxia (principal); J81.0 Acute pulmonary edema; I50.31 Acute diastolic (congestive) heart failure; I10 Essential (primary) hypertension; S34 Injury of lumbar and sacral spinal cord and nerves at abdomen, lower back and pelvis level; E44.0 Moderate protein-calorie malnutrition; Z68.1 Body mass index [BMI] 19.9 or less, adult; K91.2 Postsurgical malabsorption, not elsewhere classified; I11.0 Hypertensive heart disease with heart failure; I95.2 Hypotension due to drugs; T46.4X5A Adverse effect of angiotensin-converting-enzyme inhibitors, initial encounter; T46.3X5A Adverse effect of coronary vasodilators, initial encounter; I45.81 Long QT syndrome; M79.7 Fibromyalgia; M17.10 Unilateral primary osteoarthritis, unspecified knee; G89.29 Other chronic pain; F32.9 Major depressive disorder, single episode, unspecified; I35.0 Nonrheumatic aortic (valve) stenosis; R34 Anuria and oliguria; I69.398 Other sequelae of cerebral infarction; M21.379 Foot drop, unspecified foot; K91.1 Postgastric surgery syndromes; Y83.2 Surgical operation with anastomosis, bypass or graft as the cause of abnormal reaction of the patient, or of later complication, without mention of misadventure at the time of the procedure; Y92.009 Unspecified place in unspecified non-institutional (private) residence as the place of occurrence of the external cause; D50.8 Other iron deficiency anemias; D51.9 Vitamin B12 deficiency anemia, unspecified; F44.4 Conversion disorder with motor symptom or deficit; G62.9 Polyneuropathy, unspecified; T88.59XS Other complications of anesthesia, sequela; R48.8 Other symbolic dysfunctions; T42.75XA Adverse effect of unspecified antiepileptic and sedative-hypnotic drugs, initial encounter; Y92.230 Patient room in hospital as the place of occurrence of the external cause; E03.9 Hypothyroidism, unspecified; D35.2 Benign neoplasm of pituitary gland; N28.89 Other specified disorders of kidney and ureter; K21.9 Gastro-esophageal reflux disease without esophagitis; G47.30 Sleep apnea, unspecified; F43.10 Post-traumatic stress disorder, unspecified; F41.9 Anxiety disorder, unspecified; G47.00 Insomnia, unspecified; M54.2 Cervicalgia; Z78.1 Physical restraint status; Z88.8 Allergy status to other drugs, medicaments and biological substances; Z98.84 Bariatric surgery status; Z74.01 Bed confinement status; Z79.891 Long term (current) use of opiate analgesic; Z79.899 Other long term (current) drug therapy; Z79.82 Long term (current) use of aspirin; G72.89 Other specified myopathies; Z87.11 Personal history of peptic ulcer disease; Z86.39 Personal history of other endocrine, nutritional and metabolic disease; Z87.891 Personal history of nicotine dependence; Z91.81 History of falling
CPT/HCPCS: 36415; 36600; 51702; 71045; 80048; 80053; 81003; 82040; 82306; 82330; 82607; 82728; 82803; 83540; 83605; 83615; 83690; 83735; 83880; 84100; 84132; 84466; 84484; 85025; 85044; 85610; 85730; 87150; 93005; 93306; 94002; 94003; 94770; 96365; 96375; 99291; A6250; A9270; J0330; J1170; J2916; J3010; J3411; J7040; 80306; 80307; 80320; 80329; 81001; 87086

== ENCOUNTER 2019-05-12 22:18 | Outpatient (CLI) | payer MEDICARE, MEDICAID | END 2019-05-12 22:19 | disposition critical access hospital (66) | LOC: EMS 22:18 | PROVIDERS: ATTEND Surgery | DX: R06.02 Shortness of breath (principal); R53.1 Weakness | CPT/HCPCS: A0425; A0427 ==

== ENCOUNTER 2019-05-12 22:55 | Inpatient (IN) | payer MEDICARE, MEDICAID ==
--- NOTE | 2019-05-12 23:02 | ED Physician Documentation ---
PD HPI DYSPNEA - Stated complaint Stated Complaint: SOA - History obtained from History obtained from: Patient - History of Present Illness Timing - onset: Today Timing - duration: Minutes Timing - details: Abrupt onset Pain level now: 0 Improved by: O2, Sitting up Worsened by: Laying flat Associated symptoms: No: Fever, Chest pain / discomfort, Bilateral edema Recently seen: Admitted - Additional information Additional information: This is a 69-year-old woman who was just discharged from the hospital today after she developed pulmonary edema and required intubation. She says they did not send her home on oxygen. She does not have a history of asthma or emphysema. Apparently she laid flat at home to change and started developing difficulty breathing so the ambulance was called. They arrived to find her with saturations of 81%. They sat her up and put her on oxygen and have been able to wean her down to 6 L. The patient is denying any chest pain and feels better. She is complaining of abdominal pain. She has been urinating and stated she does not think she was placed on any water pills at discharge. Review of Systems Unable to obtain: Other (Acute presentation with shortness of breath.) Constitutional: denies: Fever Cardiac: denies: Palpitations Respiratory: reports: Dyspnea. denies: Cough GI: reports: Abdominal Pain. denies: Vomiting : denies: Dysuria PD PAST MEDICAL HISTORY - Past Medical History Cardiovascular: Hypertension, Murmur, Other Respiratory: Sleep apnea Neuro: CVA, Migraines, Peripheral neuropathy, Tremors, Other Endocrine/Autoimmune: HyPOthyroidism, Other GI: GERD, Ulcers, Cholelithiasis, Other : Renal insuffiency Psych: Depression, Anxiety, Post traumatic stress disorder Musculoskeletal: Osteoarthritis, Fibromyalgia, Chronic back pain, Other - Past Surgical History Past Surgical History: Yes General: Appendectomy, Gastric surgery Ortho: ACL reconstruction, Arthroscopic surgery /MINE GEOLOGIST: Hysterectomy, Oophrectomy, Other Neuro: Gamma knife HEENT: Tonsil/Adenoidectomy - Present Medications Home Medications: Ambulatory Orders Medication Instructions Recorded Confirmed Aspirin [Aspirin EC] 81 mg PO DAILY 01/21/17 05/10/19 Duloxetine HCl 60 mg PO DAILY 01/21/17 05/10/19 Levothyroxine [Synthroid] 50 mcg PO DAILY 01/21/17 05/10/19 Omeprazole [PriLOSEC] 20 mg PO DAILY 01/21/17 05/10/19 Pregabalin [Lyrica] 200 mg PO BID 01/21/17 05/10/19 Bupropion HCl [Bupropion Xl] 150 mg PO DAILY 05/10/19 05/10/19 Meloxicam 7.5 mg PO BID 05/10/19 05/10/19 Oxycodone HCl/Acetaminophen 1 tab PO Q4H 05/10/19 05/10/19 [Oxycodone-Acetaminophen 10-325] Midodrine 2.5 mg PO TIDWM #90 tablet 05/12/19 Multivit with Iron,Minerals 1 each PO DAILY #30 tablet 05/12/19 [Spectravite Senior] Vitamin B Complex/Folic Acid 0.4 mg PO DAILY #30 tablet 05/12/19 [B-Complex Tablet] - Allergies Allergies/Adverse Reactions: Allergies Allergy/AdvReac Type Severity Reaction Status Date / Time latex Allergy Rash Verified 05/12/19 22:56 Penicillins Allergy Rash Verified 05/12/19 22:56 fentanyl AdvReac Anxiety Verified 05/12/19 22:56 - Social History Does the pt smoke?: No Smoking Status: Never smoker Does the pt drink ETOH?: No Does the pt have substance abuse?: No - Immunizations Immunizations are current?: Yes - POLST Patient has POLST: No PD ED PE NORMAL - Vitals Vital signs reviewed: Yes - General General: Alert and oriented X 3, No acute distress, Well developed/nourished, Other (Pale thin 69-year-old woman) - HEENT HEENT: PERRL, EOMI - Neck Neck: No adenopathy, Thyroid normal - Cardiac Cardiac: RRR, Other (There is a harsh 4/6 systolic murmur heard at the left upper sternal border.) - Respiratory Respiratory: Other (Lung sounds are diminished at the bases three quarters of the way up the lung pantoja posteriorly. There is some wheezing and fine crackles in the upper posterior lung pantoja) - Abdomen Abdomen: Normal bowel sounds, Soft - Derm Derm: Other (Patient is diaphoretic and pale.) - Extremities Extremities: No edema - Neuro Neuro: Alert and oriented X 3, No motor deficit, No sensory deficit, Normal speech - Psych Psych: Normal mood, Normal affect Results - Vitals Vitals: Vital Signs - 24 hr 05/12/19 05/12/19 05/13/19 22:57 23:09 00:30 Temperature 36.5 C Heart Rate 93 88 88 Respiratory 18 17 19 Rate Blood Pressure 100/60 96/56 L 105/82 H O2 Saturation 96 99 100 05/13/19 05/13/19 01:31 02:02 Temperature Heart Rate 92 92 Respiratory 19 18 Rate Blood Pressure 103/56 L 112/66 O2 Saturation 97 96 Oxygen O2 Source Nasal cannula Oxygen Flow Rate 4 - EKG (time done) 2303 Rate: Rate (enter#) (86) Rhythm: NSR Ischemia: Non specific changes - Labs Labs: Laboratory Tests 05/12/19 05/12/19 05/12/19 23:08 23:08 23:08 WBC 7.4 RBC 3.18 L Hgb 9.4 L Hct 29.0 L MCV 91.2 MCH 29.6 MCHC 32.4 RDW 15.3 H Plt Count 216 MPV 10.5 Neut # (Auto) 6.1 Lymph # (Auto) 0.7 L [place] # (Auto) 0.4 Eos # (Auto) 0.2 Baso # (Auto) 0.0 Absolute Nucleated RBC 0.00 Nucleated RBC % 0.0 Sodium 140 Potassium 4.2 Chloride 113 H Carbon Dioxide 22 Anion Gap 5.0 L BUN 7 Creatinine 0.3 L Estimated GFR (MDRD) 222 Glucose 83 Calcium 7.7 L Total Bilirubin 0.4 AST 18 ALT 13 Alkaline Phosphatase 96 Troponin I High Sens 12.2 B-Natriuretic Peptide Total Protein 4.8 L Albumin 2.0 L Globulin 2.8 Albumin/Globulin Ratio 0.7 L Lipase 15 L 05/12/19 23:08 WBC RBC Hgb Hct MCV MCH MCHC RDW Plt Count MPV Neut # (Auto) Lymph # (Auto) [place] # (Auto) Eos # (Auto) Baso # (Auto) Absolute Nucleated RBC Nucleated RBC % Sodium Potassium Chloride Carbon Dioxide Anion Gap BUN Creatinine Estimated GFR (MDRD) Glucose Calcium Total Bilirubin AST ALT Alkaline Phosphatase Troponin I High Sens B-Natriuretic Peptide 885 H Total Protein Albumin Globulin Albumin/Globulin Ratio Lipase - Rads (name of study) CXR Radiology: EMP read contemporaneously, See rad report (Pulmonary edema) PD MEDICAL DECISION MAKING - ED course Complexity details: reviewed old records, reviewed results, re-evaluated patient, d/w patient, d/w family, d/w surgery consultant ED course: Patient was able to be weaned down to 2 L of O2 and was satting 99%. Quick review of her records revealed that she had newly diagnosed severe aortic stenosis with some aortic regurgitation and her chest x-ray confirms that she still has pulmonary edema. Her BNP has risen to 880 from discharge earlier in the same day at 600. Her BUN and creatinine are not elevated. She is anemic with a hemoglobin of 9.4. I felt that the patient's medical status having just been discharged from our facility less than 12 hours prior to her return that she might benefit from care at a hospital that is not critical access where she can be evaluated by not only cardiology but also GI. [facility] did not have any beds and after discussion with the turn supervisor, Dr Leon, at [place] he did not feel that she would be a candidate for any acute intervention from a cardiac standpoint recommended that she be admitted here for diuresis. I spoke with the hospitalist he is exceedingly uncomfortable with this patient at a critical care hospital so I have a call out to the hospitalist at [place] to see if she can be transferred there. 0251: Discussion was held between the hospitalist at [place] and our hosp italist here, Dr Montanez. Dr Montanez came in to the department to evaluate the patient and after interviewing and examining her, the decision was made to admit her here at [facility]. Both Dr. darryl Jordan and I were at the bedside and had a discussion about CODE STATUS with the patient. She did request to be a DO NOT RESUSCITATE with no intubation, no defibrillation, no chest compressions. Departure - Departure Disposition: [facility] DC/Xfer Clinical Impression: CHF (congestive heart failure) Qualifiers: Heart failure type: unspecified Heart failure chronicity: acute Qualified Code(s): I50.9 - Heart failure, unspecified Aortic stenosis Qualifiers: Cardiac valve disease etiology: etiology unspecified Qualified Code(s): I35.0 - Nonrheumatic aortic (valve) stenosis Discharge Date/Time: 05/13/19 03:30
[2019-05-12 23:11] LABS: BASOPHILS % (AUTO) 0.3 %; EOSINOPHILS # (AUTO) 0.2 10^3/uL (0.0-0.7); EOSINOPHILS % (AUTO) 2.4 %; HGB - HEMOGLOBIN 9.4 g/dL (12.0-16.0); LYMPHOCYTES # (AUTO) 0.7 10^3/uL (1.5-3.5); LYMPHOCYTES % (AUTO) 8.8 %; MEAN CORPUSCULAR HEMOGLOBIN 29.6 pg (27.0-31.0); MEAN CORPUSCULAR HGB CONC 32.4 g/dL (32.0-36.0); MEAN CORPUSCULAR VOLUME 91.2 fL (81.0-99.0); MEAN PLATELET VOLUME 10.5 fL (7.9-10.8); MONOCYTES # (AUTO) 0.4 10^3/uL (0.0-1.0); MONOCYTES % (AUTO) 5.1 %; NEUTROPHILS # (AUTO) 6.1 10^3/uL (1.5-6.6); NEUTROPHILS % (AUTO) 82.9 %; PLT - PLATELET COUNT 216 10^3/uL (130-450); RED BLOOD COUNT 3.18 10^6/uL (4.20-5.40); RED CELL DISTRIBUTION WIDTH 15.3 % (12.0-15.0); WHITE BLOOD COUNT 7.4 x10^3/uL (4.8-10.8)
[2019-05-12 23:24] LABS: ALBUMIN/GLOBULIN RATIO 0.7 (1.0-2.2); BILIRUBIN,TOTAL 0.4 mg/dL (0.2-1.0); CALCIUM 7.7 mg/dL (8.5-10.3); CREATININE 0.3 mg/dL (0.4-1.0); TOTAL PROTEIN 4.8 g/dL (6.7-8.2)
--- NOTE | 2019-05-12 23:50 | XRAY Report ---
Reason: chest pain Procedure Date: 05/12/2019 Accession Number: [id number] / [id number] Procedure: XR - Chest 1 View X-Ray CPT Code: 02828 FULL RESULT: EXAM: CHEST RADIOGRAPHY EXAM DATE: 05/12/2019 11:16 PM CLINICAL HISTORY: Chest pain. COMPARISON: CHEST FOR LINE PLACEMENT 05/09/2019 10:16 AM, CHEST 1 VIEW 05/09/2019 8:40 AM, CHEST 1 VIEW 05/09/2019 7:04 AM, CHEST 1 VIEW 05/10/2019 9:04 AM. TECHNIQUE: 1 view. FINDINGS IMPRESSION: 1. Patient has been extubated. Diffuse interstitial and airspace disease noted bilaterally, progressed from the prior exam. This may be severe progressive edema with or without associated infection and/or atelectasis. 2. There is a medium sized left-sided pleural effusion and at least a small right-sided pleural effusion. These are similar to the prior study. 3. Cardiac silhouette is at the upper limits of normal. 4. Decreased bone density about the right shoulder, probably related to right hemiparesis. 5. No definite pneumothorax. RADIA
[2019-05-13] MEDS ORDERED: PREGABALIN 100 MG CAPSULE PO STA ×2 (00:39→01:06)
[2019-05-13] MEDS ORDERED: oxyCODONE 5 MG TABLET PO STA (00:41)
[2019-05-13] MEDS ORDERED: FUROSEMIDE 20 MG/2 ML VIAL IVP STA (01:12)
[2019-05-13] MEDS ORDERED: ONDANSETRON 4 MG/2 ML VIAL IVP PRN (02:52)
[2019-05-13] MEDS ORDERED: SODIUM CHLORIDE FLUSH 0.9% 10 ML SYRINGE IVP PRN (02:52)
--- NOTE | 2019-05-13 03:45 | HISTORY & PHYSICAL EXAMINATION ---
Chief Complaint - Chief Complaint Chief Complaint: dyspnea History of Present Illness - Admitted From [facility] ED - History Obtained From Records Reviewed: yes History obtained from: patient - History of Present Illness HPI Comment/Other: Patient seen and examined today 05/13/19 around 3:00am. Patient is a 69 y/o female with recently diagnosed severe Aortic stenosis who was recently admitted on 05/09/19 with respiratory failure/ pulmonary edema. She was intubated and diuresed but then experienced low blood pressure which wa rranted levophed. She responded well to diuresis and was extubated. Lasix was converted from IV to oral and she was transferred out of the ICU. She was discharged on 05/12/19. When she arrived home, she needed to be changed so her sister laid her flat to for that purpose. She is bedridden and is normally transferred using a christopher lift. She instantly became dyspneic, wheezing and coughing. When she arrived to the ED she was on 15L of oxygen. She usually does not wear oxygen at home. She was found to have pulmonary edema on CXR with a proBNP of 800. It was 600 when last checked during the last admission. She denied chest pain but also complained of abd pain. She does not have any lower extremity edema but has severe neuropathy in her legs. Her feet are perpetually plantar flexed. She was given 20mg IV of lasix in the ED. By the time of my evaluation she had 600ml of urine out put. She was breathing comfortably on 2L Oxygen with and O2Sat of 94% and a SBP of about 103. Cardiology had been contacted during the previous admission with regards to the possibility of TAVR however it was recommended that her nutritional status be improved before any possible consideration. During this admission, she expresses that she wants to be a DNR. She is being admitted for further diuresis History - Past Medical History Cardiovascular: reports: Hypertension, Murmur, Other Respiratory: reports: Sleep apnea Neuro: reports: CVA, Migraines, Peripheral neuropathy, Tremors, Other Endocrine/Autoimmune: reports: HyPOthyroidism, Other GI: reports: GERD, Ulcers, Cholelithiasis, Other : reports: Renal insuffiency Psych: reports: Depression, Anxiety, Post traumatic stress disorder Musculoskeletal: reports: Osteoarthritis, Fibromyalgia, Chronic back pain, Other MRSA Hx?: No - Past Surgical History General: reports: Appendectomy, Gastric surgery Ortho: reports: ACL reconstruction, Arthroscopic surgery /TIRE DESIGN ENGINEER: reports: Hysterectomy, Oophrectomy, Other Neuro: reports: Gamma knife HEENT: reports: Tonsil/Adenoidectomy - Family & Social History Family History Comment/Other: Mother: unknown cancer , DM, OA, HI. Father: liver cancer, alcoholis cirrhosis. Sisters (4): thyroid,CVA, CAD, seizure disorder. Children (3): unknown and not in contact Social History Notes: Started smoking 1961 and quit 1989, 2 ppd. Alcohol abuse in her 20's and 30's. Recreational use of cannibus. She was to her first and had 3 kids w him. He . She remarried 3 more times and . She became ill w her gastric bypass and never recovered. Weight loss, falls resulted in fall and SNF in [place] by 2001. Was in SNF there for a year, then brought back to [facility] for 2-3 years and then went to live with her sister here on the [place] for the last 8 years. - Substance History Use: Uses substance without health or social issues: NONE - POLST Patient has POLST: No POLST Status: DNR Meds/Allgy - Home Medications Home Medications: Ambulatory Orders Medication Instructions Recorded Confirmed Aspirin [Aspirin EC] 81 mg PO DAILY 01/21/17 05/10/19 Duloxetine HCl 60 mg PO DAILY 01/21/17 05/10/19 Levothyroxine [Synthroid] 50 mcg PO DAILY 01/21/17 05/10/19 Omeprazole [PriLOSEC] 20 mg PO DAILY 01/21/17 05/10/19 Pregabalin [Lyrica] 200 mg PO BID 01/21/17 05/10/19 Bupropion HCl [Bupropion Xl] 150 mg PO DAILY 05/10/19 05/10/19 Meloxicam 7.5 mg PO BID 05/10/19 05/10/19 Oxycodone HCl/Acetaminophen 1 tab PO Q4H 05/10/19 05/10/19 [Oxycodone-Acetaminophen 10-325] Midodrine 2.5 mg PO TIDWM #90 tablet 05/12/19 Multivit with Iron,Minerals 1 each PO DAILY #30 tablet 09/25/19 [Spectravite Senior] Vitamin B Complex/Folic Acid 0.4 mg PO DAILY #30 tablet 05/12/19 [B-Complex Tablet] - Allergies Allergies/Adverse Reactions: Allergies Allergy/AdvReac Type Severity Reaction Status Date / Time latex Allergy Rash Verified 05/12/19 22:56 Penicillins Allergy Rash Verified 05/12/19 22:56 fentanyl AdvReac Anxiety Verified 05/12/19 22:56 Review of Systems - Constitutional Constitutional: reports: Weakness, Poor appetite. denies: Fatigue, Fever, Chills - Eyes Eyes: denies: Amaurosis, Blurred vision, Vision loss, Dipolpia - Ears, Nose & Throat Ears, Nose & Throat: denies: Tinnitus, Vertigo, Sore throat, Hoarseness - Cardiovascular Cariovascular: reports: Orthopnea. denies: Chest pain, Edema, Lightheadedness, Syncope, Exertional dyspnea - Respiratory Respiratory: reports: Cough, Wheezing, Orthopnea, SOB at rest - Gastrointestinal Gastrointestinal: reports: Abdominal pain. denies: Abdominal distention, Constipation, Diarrhea, Nausea, Vomiting - Genitourinary Genitourinary: denies: Dysuria, Frequency, Urgency, Hematuria - Musculoskeletal Musculoskeletal: reports: Limited range of motion - Integumentary Integumentary: denies: Rash, Pruritis, Lesions - Neurological Neurological: reports: Other (cannot ambulate.) - Psychiatric Psychiatric: denies: Depression, Anxiety - Endocrine Endocrine: denies: Polyuria, Polydypsia - Hematologic/Lymphatic Hematologic/Lymphatic: denies: Anemia, Bruising, Petechiae Prior Level of Functionality: She is bedridden Transferred using a christopher lift. She lives with her sister Exam - Vital Signs Vital Signs: Vital Signs x48h Temp Pulse Resp BP Pulse Ox 05/13/19 03:00 82 19 106/57 L 98 05/13/19 02:02 92 18 112/66 96 05/13/19 01:31 92 19 103/56 L 97 05/13/19 00:30 88 19 105/82 H 100 05/12/19 23:09 88 17 96/56 L 99 05/12/19 22:57 36.5 C 93 18 100/60 96 - Physical Exam General Appearance: positive: Alert, Mild distress. negative: Lethargic Eyes Bilateral: positive: Normal inspection, PERRL, EOMI ENT: positive: ENT inspection nml, No signs of dehydration Neck: positive: Nml inspection, No JVD, Trachea midline Respiratory: positive: Chest non-tender, Other (coarse breath sounds). negative: No respiratory distress, Wheezes, Rales, Rhonchi Cardiovascular: positive: Tachycardia, Systolic murmur (loud systollic murmur) Abdomen: positive: No organomegaly, Nml bowel sounds, No distention, Tenderness Back: positive: Nml inspection Skin: positive: Color nml, No rash, Warm, Dry Extremities: positive: No pedal edema, Other (painful to palpation) Neurologic/Psychiatric: positive: Oriented x3, CN's nml (2-12), Mood/affect nml, Other (feet plantar flexed.) Conclusion/Plan - Problem List (1) Acute respiratory failure with hypoxia Conclusion/Plan: 2/2 Pulmonary edema related to severe aortic stenosis patient given lasix 20mg IV in the ED. Patient experienced marked improvement Will continue lasix 20mg po daily Strict I/O's. Daily weights (2) Pulmonary edema Conclusion/Plan: 2/2 severe Aortic stenosis. Gentle diuresis Qualifiers: Chronicity: acute Qualified Code(s): J81.0 - Acute pulmonary edema (3) Aortic stenosis, severe Conclusion/Plan: Cardiology has been contacted about a TAVR. They are not willing to undertake any intervention until her nutritional status improves (4) Chronic pain Conclusion/Plan: Has a pain agreement. On pregabalin. Tylenol for now Qualifiers: Chronic pain type: other chronic pain Qualified Code(s): G89.29 - Other chronic pain (5) Protein-calorie malnutrition, moderate Conclusion/Plan: Patient received supplements withing the past few days. Continue supplements (6) Depression Conclusion/Plan: On bupropion and duloxetine (7) Hypothyroid Conclusion/Plan: On synthroid - Lab Results Fish Bones: 05/12/19 23:08 05/12/19 23:08 Core Measures - Anticipated LOS I expect patient to be DC'd or transferred within 96 hours.: Yes - DVT/VTE - Prophylaxis VTE/DVT Device ordered at admit?: Yes VTE/DVT Prophylaxis med ordered at admit?: Yes
[2019-05-13] MEDS: ACETAMINOPHEN 325 MG TABLET PO PRN ×2 (04:50→10:17)
[2019-05-13 04:52] LABS: BILIRUBIN,URINE NEGATIVE (NEGATIVE); GLUCOSE, URINE (UA) NEGATIVE (NEGATIVE); KETONES,URINE (UA) NEGATIVE (NEGATIVE); LEUKOCYTE ESTERASE, URINE LARGE (NEGATIVE); NITRITE,URINE NEGATIVE (NEGATIVE); OCCULT BLOOD,URINE TRACE-LYSE (NEGATIVE); PH,URINE 5.5 PH (5.0-7.5); PROTEIN,URINE NEGATIVE (NEGATIVE); UROBILINOGEN,URINE 0.2 (NORMAL) E.U./dL (NORMAL)
[2019-05-13 04:59] LABS: CLARITY,URINE CLEAR (CLEAR)
[2019-05-13 05:00] LABS: BACTERIA,URINE Moderate /HPF (None Seen); RBC,URINE 0-5 /HPF (0-5); SQUAMOUS EPITHELIAL CELL,UR RARE Squamous (<= Few)
[2019-05-13 05:27] LABS: BASOPHILS % (AUTO) 0.3 %; EOSINOPHILS # (AUTO) 0.1 10^3/uL (0.0-0.7); EOSINOPHILS % (AUTO) 0.9 %; HGB - HEMOGLOBIN 9.2 g/dL (12.0-16.0); LYMPHOCYTES # (AUTO) 0.9 10^3/uL (1.5-3.5); LYMPHOCYTES % (AUTO) 12.4 %; MEAN CORPUSCULAR HEMOGLOBIN 28.2 pg (27.0-31.0); MEAN CORPUSCULAR HGB CONC 30.8 g/dL (32.0-36.0); MEAN CORPUSCULAR VOLUME 91.7 fL (81.0-99.0); MONOCYTES # (AUTO) 0.5 10^3/uL (0.0-1.0); MONOCYTES % (AUTO) 6.6 %; NEUTROPHILS # (AUTO) 5.4 10^3/uL (1.5-6.6); NEUTROPHILS % (AUTO) 79.2 %; PLT - PLATELET COUNT 238 10^3/uL (130-450); RED BLOOD COUNT 3.26 10^6/uL (4.20-5.40); RED CELL DISTRIBUTION WIDTH 15.1 % (12.0-15.0); WHITE BLOOD COUNT 6.9 x10^3/uL (4.8-10.8)
[2019-05-13 05:31] LABS: CREATININE 0.4 mg/dL (0.4-1.0)
[2019-05-13] MEDS: PANTOPRAZOLE 40 MG TABLET PO SCH (06:06)
[2019-05-13] MEDS ORDERED: MIN OIL/DIMETHICON/COCONUT OIL 92 GM TUBE TOP PRN (06:46)
[2019-05-13] MEDS ORDERED: PANTOPRAZOLE 40 MG VIAL IVP SCH (07:00)
[2019-05-13] MEDS: HEPARIN 5,000 UNIT/ML VIAL SUBQ SCH ×2 (08:21→21:09)
[2019-05-13] MEDS: POLYETHYLENE GLYCOL 3350 17 GM PACKET PO SCH (08:22)
[2019-05-13] MEDS: SODIUM CHLORIDE FLUSH 0.9% 10 ML SYRINGE IVP SCH ×2 (08:23→17:36)
[2019-05-13] MEDS ORDERED: FUROSEMIDE 20 MG TABLET PO SCH (09:00)
[2019-05-13] MEDS ORDERED: oxyCODONE 5 MG TABLET PO PRN (11:14)
[2019-05-13] MEDS ORDERED: FOLIC ACID PO SCH (11:15)
[2019-05-13] MEDS ORDERED: VITAMIN B COMPLEX PO SCH (11:15)
[2019-05-13] MEDS: MIDODRINE 2.5 MG TABLET PO SCH ×2 (12:24→17:35)
[2019-05-13] MEDS: buPROPion XL 150 MG TABLET PO SCH (12:24)
[2019-05-13] MEDS: ASPIRIN EC 81 MG TABLET PO SCH (12:24)
--- NOTE | 2019-05-13 12:26 | ADVANCE CARE PLANNING NOTE ---
Advance Care Planning - Planning Encounter Date: 05/13/19 Time: 11:45 Purpose: To establish patient's wishes regarding Code status and aggressiveness of medical management Parties in Attendance: This Hospitalist spoke to the patient in her bed, the sister Eugenia, who is her DPOA, and the [id number] at bedside. Decisional Capacity of the Patient: She has full decisional capacity. - Diagnosis for Encounter (1) CHF (congestive heart failure) Qualifiers: Heart failure type: diastolic Heart failure chronicity: acute on chronic Qualified Code(s): I50.33 - Acute on chronic diastolic (congestive) heart failure Summary: Diastolic heart failure secondaty to severe aortic stenosis was newly diagnosed last week at that last admission. (2) Functional paraparesis Summary: Marked muscular weakness and fibromyalgia pain has resulted in her being bed and chair bound for about 8 years. - Encounter Subjective/Patient's Story: Patient underwent gastric bypass surgery 10 years ago at [facility] then moved to [place] and then moved back to [place]. When her sister saw her after the bypass surgery she was shocked to find her "nearly a skeleton". At this point she required complete long term care for about 3 years and after that has been living for abut 8 years with the DPOA sister who is her caregiver. They have a Jayleen lift, 2 wheelchairs, several hos pital tables, since the patient could no longer stand and has been bed and chair bound for years. The DPOA/caregiver, is able to raise her with a Jayleen lift from her bed into a wheelchair where she can sit for several hours maximum, then develops pain in her lower extremities and is also fatigued and requests to go back to bed. The caregiver admits that the patient spends most of her day in bed watching TV. The patient gets dry heaves after certain foods, and dumping syndrome after other foods and overall she has "no appetite". There has never been a gastroenterology management for any vitamin supplements following gastric bypass surgery. At the last visit, earlier this week, there was Dietary advice and a plan for having Gastroenterolgy management for improved nutrition. After that, s he wanted to be evaluated for a TAVR, since the last admission. Objective/Medical Story: The patient was just discharged yesterday after hospitalization for flash pulmonary edema and was diagnosed with severe aortic stenosis and acute diastolic heart failure, also chronically low BP. [facility] would see her as an outpatient for possible TAVR, if she has improved nutrition. She went home yesterday and was supine to have her diaper changed, and developed flash pulmonary edema again, was brought by ambulance to the ER where she got supplemental O2, iv Lasix and had 600 cc diuresis and felt better. Last night, she told the admitting Water Treatment Plant Repairer that she wants to be a DNR. She and the [facility] sister tell me that the patient wants to still try to get improved nutritionally and be evaluated for a TAVR. If she needs a Paliiative Care provider, she wants Kay _?_, who used to be her Credit Risk Analytics Manager and just transferred to Palliative Care in [facility] 1 month ago. Goals of Care: I explained to the patient and family what a CHF exacerbation means and how her management could be adjusted. After that, the following plan was agreed upon: Continue to adjust meds for CHF, possible new home O2 will be needed. Sign new POLST with DNR status. Continue with the plan for outpatient GI management and eventual outpatient Cardiology evaluation. Plan: DNR, already ordered as of last night. POLST to be completed and signed today. Medical management and meds adjustments. She is not a candidate for PT, as she does not walk. Code Status: Do Not Attempt Resuscitation Time spent on advance care plannin min
[2019-05-13] MEDS ORDERED: ZINC OXIDE 20% OINT 30 GM TUBE TOP PRN (16:46)
[2019-05-13] MEDS: oxyCODONE 5 MG TABLET PO PRN ×2 (17:35→22:16)
[2019-05-13] MEDS: CARBOXYMETHYLCELLULOSE OPHTH DROPS EACHEYE PRN ×2 (17:41→22:17)
[2019-05-13] MEDS: PREGABALIN 100 MG CAPSULE PO SCH (21:10)
[2019-05-14] MEDS: SODIUM CHLORIDE FLUSH 0.9% 10 ML SYRINGE IVP SCH ×2 (00:54→09:22)
[2019-05-14] MEDS: oxyCODONE 5 MG TABLET PO PRN (03:14)
[2019-05-14 05:25] LABS: BASOPHILS % (AUTO) 0.4 %; EOSINOPHILS # (AUTO) 0.1 10^3/uL (0.0-0.7); EOSINOPHILS % (AUTO) 1.4 %; HGB - HEMOGLOBIN 9.1 g/dL (12.0-16.0); LYMPHOCYTES % (AUTO) 18.1 %; MEAN CORPUSCULAR HEMOGLOBIN 29.4 pg (27.0-31.0); MEAN CORPUSCULAR HGB CONC 32.5 g/dL (32.0-36.0); MEAN CORPUSCULAR VOLUME 90.3 fL (81.0-99.0); MEAN PLATELET VOLUME 10.5 fL (7.9-10.8); MONOCYTES # (AUTO) 0.4 10^3/uL (0.0-1.0); MONOCYTES % (AUTO) 7.7 %; NEUTROPHILS # (AUTO) 4.1 10^3/uL (1.5-6.6); PLT - PLATELET COUNT 221 10^3/uL (130-450); RED CELL DISTRIBUTION WIDTH 14.8 % (12.0-15.0); WHITE BLOOD COUNT 5.6 x10^3/uL (4.8-10.8)
[2019-05-14 05:31] LABS: CALCIUM 7.9 mg/dL (8.5-10.3); CREATININE 0.4 mg/dL (0.4-1.0)
[2019-05-14] MEDS: PANTOPRAZOLE 40 MG TABLET PO SCH (06:24)
[2019-05-14] MEDS: CARBOXYMETHYLCELLULOSE OPHTH DROPS EACHEYE PRN (06:25)
[2019-05-14] MEDS ORDERED: LEVOTHYROXINE 25 MCG TABLET PO SCH (07:00)
[2019-05-14] MEDS ORDERED: PETROLATUM WHITE 5 GM PACKET TOP ONE (07:58)
[2019-05-14] MEDS ORDERED: MULTIVITAMIN W/MINERALS TABLET PO SCH (08:00)
[2019-05-14 08:33] VITALS: BP 121/67
[2019-05-14] MEDS ORDERED: CARVEDILOL 3.125 MG TABLET PO SCH (09:00)
[2019-05-14] MEDS ORDERED: DULoxetine 30 MG CAPSULE PO SCH (09:00)
[2019-05-14] MEDS ORDERED: NON FORMULARY MED (Omeprazole [Prilosec] 20 MG) PO SCH (09:00)
[2019-05-14] MEDS: buPROPion XL 150 MG TABLET PO SCH (09:20)
[2019-05-14] MEDS: ASPIRIN EC 81 MG TABLET PO SCH (09:20)
[2019-05-14] MEDS: MIDODRINE 2.5 MG TABLET PO SCH ×2 (09:20→12:01)
[2019-05-14] MEDS: POLYETHYLENE GLYCOL 3350 17 GM PACKET PO SCH (09:21)
[2019-05-14] MEDS: PREGABALIN 100 MG CAPSULE PO SCH (09:21)
[2019-05-14] MEDS: FUROSEMIDE 20 MG TABLET PO SCH ×2 (09:26→13:05)
[2019-05-14] MEDS: HEPARIN 5,000 UNIT/ML VIAL SUBQ SCH (09:27)
--- NOTE | 2019-05-14 10:41 | Discharge Plan ---
Discharge Plan Problem Reviewed?: Yes Disposition: 06 Home Health Service Condition: Stable Prescriptions: Carvedilol [Coreg] 3.125 mg PO DAILY #30 tablet Furosemide [Lasix] 20 mg PO BIDDIURETIC #60 tablet Morphine Sulfate [Morphine Sulf Oral (Roxanol)] 5 mg PO Q1H PRN #30 ml PRN Reason: Dyspnea Potassium &Magnesium Aspartate [Ra Potassium-Magnesium Asp 250] 1 each PO DAILY #30 capsule Diet: Soft Activity Restrictions: Activity as Tolerated Shower Restrictions: No Assistance Devices: Wheelchair Weight Bearing: No Weight Instruction Topics: Heart Failure Meds Control, Heart Failure, Heart Valves, Heart Failure Diet Changes Health Concerns: Admitted again with fluid in lungs from a stiff heart caused by severe aortic stenosis (valve disease). Very low blood pressure and severe malnutrition are still present. Plan of Treatment: Medications adjusted for heart failure: new Lasix medication with breakfast and lunch, new Coreg with breakfast. Continue Midodrine tablets: take 3 times a day (around mealtimes). Continue vitamin supplements orally, but these may need to be adjusted by PCP or the GI specialist. Promote protein and calorie-rich food intake, but LOW SALT, to avoid fluid retention in the lungs. A new order for home oxygen was submitted. Gastroenterology and Cardiology further management are needed. A referral for Home Health visits was submitted after the last recent admission, for a nurse, bath aide and Physical Therapist and Occupational Therapist. Care Goals: Improve strength and overall functioning, prevent fluid build-up and prevent shortness of breath. Assessment: The patient and family agree with the plan. Additional Instructions or Follow Up instructions: There is a new prescription for Potassium and Magnesium supplement, which she will need since it will become depleted due to taking Lasix. That and the Lasix presecriptions were sent electronixcally to her [facility] pharmacy. There is a new prescription for Roxanol liquid, which should be used if she has severe shortness of breath. This is a liquid form of Morphine and it has been ordered on a paper prescription as required. All the (new) prescriptions, from this and the last recent hospital stay, should be refilled by her PCP. See Dr Duarte in 5-7 days for a hospital follow-up visit. No Smoking: If you smoke, Please STOP! Call for help. Follow-up with: Alfonso Duarte MD [Primary Care Provider] -
[2019-05-14] MEDS ORDERED: MORPHINE SOL 10 MG/0.5 ML SYRINGE PO PRN (13:04)
--- NOTE | 2019-05-14 15:29 | DISCHARGE SUMMARY ---
Physician: Summer Lugo MD DATE OF ADMISSION: 05/13/2019 DATE OF DISCHARGE: 05/14/2019 HISTORY OF PRESENT ILLNESS: This is a 69-year-old white female with a history of functional paraplegia for approximately the past 8 to 10 years, fibromyalgia for which she takes narcotic pain medication, severe protein-calorie malnutrition, which developed after she had gastric bypass surgery done 10 years ago. Following that she needed snf living for 3 years, and then was taken in to live with her sister and [id number], the sister is the DPOA. Patient now requires a Jayleen lift to be taken from bed to wheelchair as she is only bedbound and wheelchair bound. She has never had a gastroenterology evaluation and management after the gastric bypass surgery for adjustment of her nutritional and vitamin needs. Patient was admitted here approximately 10 days ago with flash pulmonary edema, required intubation in the field was on the ventilator for several days and the etiology was found to be LV diastolic dysfunction from severe aortic stenosis. Patient also was found to have chronic hypotension on that admission and required Midodrine at discharge, and discontinuation of her Amlodipine and Lisinopril, which were prior home medications. The plan had been for eventual outpatient evaluation for TAVR after improvement in nutritional status with management of her malnutrition. From that admission, she was sent home. In the house, the patient was only home for approximately 30 minutes, was laid in the supine position and developed severe SOB again, and an ambulance was called, and she was brought to the emergency room where she was found to be in pulmonary edema again, required IV Lasix and then admission for CHF exacerbation. PAST MEDICAL HISTORY 1. Protein-calorie malnutrition with emaciation and nutritional anemia. 2. History of gastric bypass surgery 10 years ago. 3. Functional paraplegia and she is bedbound and wheelchair bound for the past 8 to 10 years. 4. Recent diagnosis of diastolic heart failure. 5. Recent diagnosis of severe aortic stenosis. 6. Fibromyalgia, requiring narcotics for pain control. 7. Chronic hypotension requiring new treatment with Midodrine. ALLERGIES 1. LATEX. 2. PENICILLINS. 3. FENTANYL. HOSPITAL COURSE 1. Flash pulmonary edema. The patient required IV diuretics, then was transitioned to p.o. Lasix 20 mg daily. She remained dyspneic with this dose and required 20 b.i.d. dosing. She was also started on supplemental oxygen at 15 liters/min. After diuresing approximately 1 liter, the supplemental oxygen was able to be decreased to 3 liters/min. On the day of discharge, she was evaluated for home oxygen needs. The patient was hypoxic at rest, with room air oxygen saturations of 88%. At rest with O2 at 2 liters via nasal cannula, her sats improved to 96%. She is unable to ambulate. I am ordering home O2 at 2 liters per minute via nasal cannula continuously. The patient was also started on Coreg 3.125 p.o. daily (only once a day because of low blood pressure), Lasix 20 mg at breakfast and lunch and Roxanol (liquid morphine) 5 mg every 2 hours p.r.n. dyspnea. She was also sent home with oral potassium and magnesium supplement daily. She was discharged home in stable condition on oxygen under the care of Home Health. 2. Chronic hypotension. Patient's management with new Midodrine had started at the last recent admission and prior Amlodipine and Lisinopril stopped. Her vital signs during this hospital stay, showed improvement of blood pressure to 120/60 and 130/70. The Midodrine was continued at 2.5 mg p.o. t.i.d. with meals. 3. Aortic stenosis, severe. At the last recent admission, the Hospitalist reached out to requesting consideration for TAVR, and patient and family were told that she would qualify for outpatient evaluation for TAVR if she has improvement in her nutritional status. 4. Acute on chronic LV diastolic dysfunction. At the last recent admission, the Echo also showed preserved LVEF and diastolic dysfunction present. 5. Fibromyalgia. Patient was kept on her same pain management as in the past. 6. Functional paraplegia. Family has durable medical equipment at home, which have been needed for her ADLs, and the sister Eugenia, who is the DPOA, is her primary caregiver. 7. Status-post gastric bypass surgery. She has been emaciated for years. She requires a soft diet and gets dry heaves easily and Dumping Syndrome, after certain foods. Patient was given IV B12 and IV Iron during the last recent admission. During this admission, she was kept on her oral multivitamin with trace elements. She needs a Forest Ecology Professor for evaluation and management of this post-gastric bypass patient. 8. Nutritional anemia. Her hemoglobin was low at 9.1, which was felt to be due to severe nutritional deficiencies. PHYSICAL EXAMINATION VITAL SIGNS: Blood pressure 121/67, pulse 95 in sinus rhythm, respiratory rate 14, O2 saturation 99% on 3 liters nasal cannula, afebrile. HEENT: Shows temporal wasting, sunken orbits, pallor, moist oral mucosa. She is edentulous and has upper dentures. NECK: No JVD in a vertical position. CHEST: Decreased breath sounds at the right posterior base. No rales or rhonchi. HEART: Distant S1 and S2, with a soft systolic murmur. ABDOMEN: Soft, scaphoid, nontender. Normal bowel sounds. EXTREMITIES: No clubbing, cyanosis or edema. Her right antecubital area has a large ecchymoses (from the last recent admission at an IV site that infiltrated). NEUROLOGIC: She has 1/5 muscle strength of the lower extremities. Her feet are in chronic dorsiflexion. Upper extremities have a resting tremor, but no intentional tremor. Her mentation is normal. She is oriented x3. FOLLOWUP: She was advised to see Dr. Duarte in the next 5 to 7 days for hospital followup, and for referral to Gastroenterology for management of proper nutrition and proper supplements after gastric bypass surgery, and eventual referral to for Cardiology and TAVR evaluation. CODE STATUS: DNR (this was newly established and POLST form signed, during this hospitalization after discussion with patient and the DPOA). Time required to complete this entire discharge, chart review, medication orders, dictation: 60 minutes. cc: Dr Duarte TD: 05/14/2019 15:06 [facility] HOSPITALJose Manuel
[2019-05-15] MEDS ORDERED: POTASSIUM CHLORIDE 20 MEQ/15 ML UDC PO SCH (08:00)
== END 2019-05-14 14:07 | disposition home health service (06) | DRG 291 ==
LOC: EDUNIT# → ED 22:55 → MS2 05-13 02:52
PROVIDERS: ADMIT Internal Medicine; ATTEND Internal Medicine
DX: I11.0 Hypertensive heart disease with heart failure (principal); I50.9 Heart failure, unspecified; J96.01 Acute respiratory failure with hypoxia; D64.9 Anemia, unspecified; E43 Unspecified severe protein-calorie malnutrition; Z68.1 Body mass index [BMI] 19.9 or less, adult; I50.33 Acute on chronic diastolic (congestive) heart failure; I95.89 Other hypotension; I35.0 Nonrheumatic aortic (valve) stenosis; K91.1 Postgastric surgery syndromes; Y83.2 Surgical operation with anastomosis, bypass or graft as the cause of abnormal reaction of the patient, or of later complication, without mention of misadventure at the time of the procedure; D53.9 Nutritional anemia, unspecified; R10.9 Unspecified abdominal pain; F44.4 Conversion disorder with motor symptom or deficit; M79.7 Fibromyalgia; G89.29 Other chronic pain; G47.30 Sleep apnea, unspecified; G62.9 Polyneuropathy, unspecified; E03.9 Hypothyroidism, unspecified; K21.9 Gastro-esophageal reflux disease without esophagitis; F32.9 Major depressive disorder, single episode, unspecified; F41.9 Anxiety disorder, unspecified; F43.10 Post-traumatic stress disorder, unspecified; Z66 Do not resuscitate; Z79.891 Long term (current) use of opiate analgesic; Z98.84 Bariatric surgery status; Z74.01 Bed confinement status; Z87.891 Personal history of nicotine dependence; Z91.81 History of falling; Z79.82 Long term (current) use of aspirin; Z79.899 Other long term (current) drug therapy; Z87.11 Personal history of peptic ulcer disease
CPT/HCPCS: 36415; 71045; 80048; 80053; 81001; 83690; 83735; 83880; 84484; 85025; 87077; 87086; 87181; 93005; 94761; 96374; 99285; A9270; 81003

== ENCOUNTER 2019-05-18 19:39 | Outpatient (CLI) | payer MEDICARE, MEDICAID | END 2019-05-18 19:40 | disposition E | LOC: EMS 19:39 | PROVIDERS: ATTEND Surgery ==